=== PATIENT | male | born 1975 ===

== ENCOUNTER 2016-05-25 19:54 | Emergency (ER) | payer MEDICAID ==
[2016-05-25 19:55] VITALS: BMI 27.8
[2016-05-25 20:00] VITALS: BP 132/73; PULSE 117; RESP 16; TEMP 97.7; O2SAT 100
[2016-05-25] MEDS ORDERED: metroNIDAZOLE 500mg/100ml NS 100 ML IVPB ONE ×2 (21:06→21:12)
[2016-05-25] MEDS ORDERED: Ciprofloxacin 400mg/200ml D5W 200 ML IVPB STA (21:06)
[2016-05-25] MEDS ORDERED: Ciprofloxacin 400mg/200ml D5W 200 ML IVPB ONE (21:13)
[2016-05-25 21:36] LABS: BASO # 0.1 K/uL (0.0-0.2); BASO % 0.7 % (0.0-2.0); EOS # 0.4 K/uL (0.0-0.7); EOS % 4.2 % (0.0-4.0); HEMATOCRIT 47.6 % (35.0-51.0); LYMPH # 2.4 K/uL (1.0-4.3); LYMPH % 27.2 % (20.0-40.0); MEAN CORPUSCULAR HEMOGLOBIN 30.7 pg (27.0-31.0); MONO # 0.6 K/uL (0.0-0.8); MONO % 7.2 % (0.0-10.0); NEUT # 5.3 K/uL (1.8-7.0); NEUT % 60.7 % (50.0-75.0); NRBC % 0.2 % (0.0-0.0); WHITE BLOOD COUNT 8.7 K/uL (4.8-10.8)
[2016-05-25 21:47] LABS: ALB/GLOB RATIO 1.2 (1.0-2.1); ALKALINE PHOSPHATASE 72 U/L (38-126); ALT/SGPT 24 U/L (21-72); AST/SGOT 33 U/L (17-59); BILIRUBIN,TOTAL 0.6 mg/dl (0.2-1.3); BLOOD UREA NITROGEN 18 mg/dl (9-20); CALCIUM 9.2 mg/dL (8.4-10.2); CARBON DIOXIDE 26 mmol/L (22-30); CHLORIDE 105 mmol/L (98-107); GFR AFRICAN-AMERICAN > 60; GLUCOSE,RANDOM 79 mg/dL (75-110); LIPASE 208 U/L (23-300); POTASSIUM 4.4 MMOL/L (3.6-5.0); SODIUM 146 mmol/l (132-148); TOTAL PROTEIN 7.3 G/DL (6.3-8.2)
[2016-05-25] MEDS ORDERED: Iohexol 300 100 ML IJ ONE (22:32)
[2016-05-25] MEDS ORDERED: Sodium Chloride 0.9% 50 ML IV ONE ×2 (22:32→22:33)
[2016-05-25] MEDS ORDERED: Sodium Chloride 0.9% 100 ML ONE (22:34)
--- NOTE | 2016-05-25 22:41 | ED PDOC ---
HPI: Abdomen Time Seen by Provider: 05/25/16 20:11 Chief Complaint (Nursing): Abdominal Pain Chief Complaint (Provider): Abdominal pain, epigastric and LUQ History Per: Patient History/Exam Limitations: no limitations Onset/Duration Of Symptoms: Days Severity: Severe Pain Scale Rating Of: 10 Past Medical History Reviewed: Historical Data, Nursing Documentation, Vital Signs Vital Signs: Last Vital Signs Temp 97.7 F 05/25/16 19:57 Pulse 117 H 05/25/16 19:57 Resp 16 05/25/16 19:57 BP 132/73 05/25/16 19:57 Pulse Ox 100 05/26/16 01:40 - Medical History PMH: Asthma, Back Problems, Gall Bladder Disease, Pancreatitis, Rheumatoid Arthritis Denies: CHF, COPD, HIV, HTN, Hypercholesterolemia, Hypothyroidism, Chronic Kidney Disease - Surgical History Surgical History: Cholecystectomy, Endoscopy - Family History Family History: States: Unknown Family Hx - Immunization History Hx Tetanus Toxoid Vaccination: No Hx Influenza Vaccination: Yes Hx Pneumococcal Vaccination: Yes - Home Medications Home Medications: Ambulatory Orders Medication Instructions Recorded Albuterol Sulfate [Proventil Hfa] 2 puff INH Q6H PRN 05/13/16 Lipase/Protease/Amylase [Zenpep Dr 1 cap PO TID 05/13/16 25,000 Units Capsule] Ondansetron [Zofran Tab] 4 mg PO DAILY PRN 05/13/16 traMADol [Ultram] 50 mg PO TID PRN #12 tab 05/13/16 Ciprofloxacin [Cipro] 500 mg PO BID #14 tab 05/20/16 metroNIDAZOLE [Flagyl] 500 mg PO TID #21 tab 05/20/16 - Allergies Allergies/Adverse Reactions: Allergies Allergy/AdvReac Type Severity Reaction Status Date / Time No Known Allergies Allergy Verified 05/20/16 17:56 Review of Systems ROS Statement: Except As Marked, All Systems Reviewed And Found Negative Gastrointestinal: Positive for: Nausea, Vomiting, Abdominal Pain Physical Exam - Reviewed Nursing Documentation Reviewed: Yes Vital Signs Reviewed: Yes - Physical Exam Appears: Positive for: Well, Non-toxic, No Acute Distress Head Exam: Positive for: ATRAUMATIC, NORMAL INSPECTION, NORMOCEPHALIC Skin: Positive for: Normal Color, Warm, DRY Eye Exam: Positive for: Normal appearance ENT: Positive for: Normal ENT Inspection Neck: Positive for: Normal, Painless ROM Cardiovascular/Chest: Positive for: Regular Rate, Rhythm Respiratory: Positive for: CNT, Normal Breath Sounds Gastrointestinal/Abdominal: Positive for: Bowel Sounds, Soft, Tenderness ( Diffuse abdominal pain ). Negative for: Normal Exam, Guarding, Rebound Back: Positive for: Normal Inspection Extremity: Positive for: Normal ROM Neurologic/Psych: Positive for: Alert, Oriented - Laboratory Results Result Diagrams: 05/25/16 21:15 05/25/16 21:15 - ECG O2 Sat by Pulse Oximetry: 100 Medical Decision Making Medical Decision Making: Discussed with Thai Meneses NP. States he will see patient at 8am. Pts GI is out of [facility] (Formerly [facility]). Disposition - Clinical Impression Clinical Impression: Abdominal pain - Patient ED Disposition Is Patient to be Admitted: No Counseled Patient/Family Regarding: Diagnosis, Need For Followup - Disposition Referrals: Thai Meneses DNP, [employer] [employer] [Advanced Practice Nurse] - Disposition: Routine/Home Disposition Time: 01:20 Condition: GOOD Additional Instructions: Please follow-up with Thai Meneses DNP at 8am. Instructions: Abdominal Pain (ED)
--- NOTE | 2016-05-25 23:56 | CT ---
EXAM: CT Abdomen and Pelvis With Intravenous Contrast. CLINICAL HISTORY: 40 years old, male; Pain; Abdominal pain; Prior surgery; Surgery date: <1 month; Surgery type: Pancreatic stent insertion; Patient HX: Gall bladder removed; Additional info: Abdominal pain, vomiting TECHNIQUE: Axial computed tomography images of the abdomen and pelvis with intravenous contrast. This CT exam was performed using one or more of the following dose reduction techniques: automated exposure control, adjustment of the mA and/or kV according to patient size, and/or use of iterative reconstruction technique. Coronal and sagittal reformatted images were created and reviewed. CONTRAST: 95 mL of [id number] administered intravenously. EXAM DATE/TIME: 05/25/2016 9:06 PM COMPARISON: CT - ABD PELVIS IV CONTRAST ONLY 11/05/2015 3:25:53 AM FINDINGS: Cholecystectomy clips are present. The liver is normal. The spleen is normal. Stent in the pancreatic duct with one tip in the body and one tip along the medial wall of the descending duodenum, new since prior study. The pancreatic parenchyma appears normal. No peripancreatic stranding. No hydronephrosis or perinephric stranding. Left renal cyst. There is marked gastric dilation with a large amount of ingested material and fluid. no obstructing lesion identified. Decompression with feeding tube may be helpful. The colon is distended with stool consistent with constipation. A normal appendix is identified series 3 images 81-91, coronal images 58-65. IMPRESSION: Marked gastric dilation. Mild constipation. New pancreatic duct stent.
== END 2016-05-26 02:16 | disposition home or self-care (01) ==
LOC: H.ER 19:54
DX: R10.13 Epigastric pain (principal); R11.2 Nausea with vomiting, unspecified

== ENCOUNTER 2016-07-29 15:29 | Observation (INO) | payer MEDICAID ==
--- NOTE | 2016-07-29 15:57 | ED PDOC ---
HPI: Chest Pain Time Seen by Provider: 07/29/16 15:34 Chief Complaint (Nursing): Chest Pain History Per: Patient History/Exam Limitations: no limitations Onset/Duration Of Symptoms: Gradual (4 hours ago) Current Symptoms Are (Timing): Still Present Severity: Moderate Quality: Sharp Associated Symptoms: denies: Nausea, Dyspnea, Diaphoresis Modifying Factors: None Exacerbating Factors: None Alleviating Factors: None Nitro Therapy Administered: 1, Per EMS, No Relief Additional History Per: Patient Additional Complaint(s): chest pain in doctor's office. ekg done on office and paramedics did ekg. aspirin 324mg and 1 nitro given in th field. at present light headed Past Medical History Reviewed: Historical Data, Nursing Documentation, Vital Signs Vital Signs: Last Vital Signs Temp 98.7 F 07/29/16 15:32 Pulse 98 H 07/29/16 15:32 Resp 18 07/29/16 15:32 BP 132/85 07/29/16 15:32 Pulse Ox 99 07/29/16 15:58 - Medical History PMH: Asthma, Back Problems, Gall Bladder Disease, Pancreatitis, Rheumatoid Arthritis Denies: CHF, Colonic Polyps, COPD, Fractures, HIV, HTN, Hypercholesterolemia , Hypothyroidism, Chronic Kidney Disease, Seizures - Surgical History Surgical History: Cholecystectomy, Endoscopy Denies: Pacemaker - Family History Family History: States: Unknown Family Hx - Living Arrangements Living Arrangements: With Family - Social History Current smoker - smoking cessation education provided: Yes Drugs: Denies, Other (prev cocaine use) - Immunization History Hx Tetanus Toxoid Vaccination: Yes Hx Influenza Vaccination: Yes Hx Pneumococcal Vaccination: Yes - Home Medications Home Medications: Ambulatory Orders Medication Instructions Recorded Fludrocortisone [Florinef] 0.1 mg PO DAILY 07/29/16 Ibuprofen [Motrin Tab] 600 mg PO Q6H 07/29/16 Nicotine 14 mg/24 hr [Nicoderm CQ] 1 patch TD DAILY 07/29/16 Ondansetron [Zofran Tab] 4 mg PO Q6H PRN 07/29/16 - Allergies Allergies/Adverse Reactions: Allergies Allergy/AdvReac Type Severity Reaction Status Date / Time No Known Allergies Allergy Verified 06/13/16 08:39 DOT Risk Score for UA/NSTEMI - DOT Risk Score Age > 64: NO 3 or more CAD Risk Factors: NO Known CAD (Stenosis greater than 50%): NO Aspirin use in past 7 days: NO Severe Angina: NO EKG ST changes greater than 0.5mm: NO Positive Cardiac Marker: NO DOT Score: 0 Risk %: 5% Review of Systems ROS Statement: Except As Marked, All Systems Reviewed And Found Negative Constitutional: Negative for: Fever, Chills Cardiovascular: Positive for: Chest Pain, Light Headedness. Negative for: Palpitations, Edema Respiratory: Negative for: Cough, Shortness of Breath, SOB with Exertion, Pleuritic Pain Gastrointestinal: Negative for: Nausea, Vomiting, Abdominal Pain Neurological: Negative for: Weakness, Numbness, Headache Physical Exam - Reviewed Nursing Documentation Reviewed: Yes Vital Signs Reviewed: Yes - Physical Exam Appears: Positive for: Uncomfortable Head Exam: Positive for: ATRAUMATIC, NORMAL INSPECTION, NORMOCEPHALIC Eye Exam: Positive for: Normal appearance, EOMI Neck: Positive for: Normal, Painless ROM, Supple Cardiovascular/Chest: Positive for: Regular Rate, Rhythm, Chest Non Tender, Tachycardia. Negative for: Edema, Gallop, Murmur, Bradycardia Respiratory: Positive for: Normal Breath Sounds, Decreased Breath Sounds. Negative for: Accessory Muscle Use, Crackles, Rales, Rhonchi, Stridor, Wheezing , Respiratory Distress Pulses-Radial (L): 2+ Pulses-Radial (R): 2+ Gastrointestinal/Abdominal: Positive for: Normal Exam, Bowel Sounds, Soft. Negative for: Tenderness Back: Positive for: Normal Inspection. Negative for: L CVA Tenderness, R CVA Tenderness Extremity: Positive for: Normal ROM. Negative for: Tenderness, Pedal Edema Neurologic/Psych: Positive for: Alert, fpga engineer II-XII, Oriented, Mood/Affect ( anxious). Negative for: Motor/Sensory Deficits, Aphasia, Facial Droop - Laboratory Results Result Diagrams: 07/29/16 16:37 07/29/16 16:37 - ECG ECG: Positive for: Interpreted By Me ECG Rhythm: Positive for: Normal QRS, Normal ST Segment, Sinus Rhythm, ST/T Changes (twi in 3,2,avf,v5,v6) O2 Sat by Pulse Oximetry: 99 Pulse Ox Interpretation: Normal Disposition - Clinical Impression Clinical Impression: Acute chest pain, Pancreatitis - Patient ED Disposition Is Patient to be Admitted: Transfer of Care - Disposition Disposition: Transfer of Care Disposition Time: 19:16 Condition: STABLE
--- NOTE | 2016-07-29 16:24 | RAD ---
PROCEDURE: CHEST RADIOGRAPH, 1 VIEW HISTORY: Chest pain COMPARISON: 06/20/2015. FINDINGS: LUNGS: The lungs are well inflated and clear. PLEURA: No pneumothorax or pleural fluid seen. CARDIOVASCULAR: Normal. OSSEOUS STRUCTURES: No significant abnormalities. VISUALIZED UPPER ABDOMEN: Normal. OTHER FINDINGS: None. IMPRESSION: No active pulmonary disease.
[2016-07-29 16:47] LABS: BASO # 0.1 K/uL (0.0-0.2); BASO % 0.6 % (0.0-2.0); EOS # 0.2 K/uL (0.0-0.7); EOS % 1.3 % (0.0-4.0); HEMATOCRIT 47.5 % (35.0-51.0); LYMPH # 1.6 K/uL (1.0-4.3); LYMPH % 13.2 % (20.0-40.0); MEAN CELL VOLUME 92.7 fl (80.0-94.0); MEAN CORPUSCULAR HGB CONC 32.4 g/dL (33.0-37.0); MEAN PLATELET VOLUME 8.1 fl (7.2-11.7); MONO # 0.6 K/uL (0.0-0.8); MONO % 5.1 % (0.0-10.0); NEUT # 9.4 K/uL (1.8-7.0); NEUT % 79.8 % (50.0-75.0); RED CELL DISTRIBUTION WIDTH 14.4 % (11.5-14.5); WHITE BLOOD COUNT 11.8 K/uL (4.8-10.8)
[2016-07-29 17:03] LABS: ALB/GLOB RATIO 1.2 (1.0-2.1); ALKALINE PHOSPHATASE 60 U/L (38-126); ALT/SGPT 17 U/L (21-72); AST/SGOT 39 U/L (17-59); BILIRUBIN,TOTAL 0.8 mg/dl (0.2-1.3); BLOOD UREA NITROGEN 12 mg/dl (9-20); CALCIUM 8.9 mg/dL (8.4-10.2); CARBON DIOXIDE 20 mmol/L (22-30); CHLORIDE 107 mmol/L (98-107); GFR AFRICAN-AMERICAN > 60; GLUCOSE,RANDOM 105 mg/dL (75-110); LIPASE 1465 U/L (23-300); MAGNESIUM 1.8 MG/DL (1.6-2.3); SODIUM 142 mmol/l (132-148); TOTAL PROTEIN 8.2 G/DL (6.3-8.2)
[2016-07-29 17:04] LABS: POTASSIUM 4.6 MMOL/L (3.6-5.0)
[2016-07-29] MEDS ORDERED: Sodium Chloride 0.9% 500 ML IV ONE (17:21)
[2016-07-29] MEDS ORDERED: Sodium Chloride 0.9% 50 ML IV ONE (18:02)
[2016-07-29] MEDS ORDERED: Iodixanol 320 MG/ML 100 ML BOTTLE IV ONE (18:02)
[2016-07-29 18:10] LABS: PARTIAL THROMBOPLASTIN TIME 26.1 SECONDS (23.3-32.5)
--- NOTE | 2016-07-29 19:16 | ED PDOC ---
"- Laboratory Results Result Diagrams: 07/29/16 16:37 07/29/16 16:37 - ECG O2 Sat by Pulse Oximetry: 99 Medical Decision Making Medical Decision Makin:00 Patient is signed out to me by Raúl Rodriguez MD pending CT abdomen and pelvis, reevaluation, and final disposition. Scribe Attestation: Documented by Annie Calix, acting as a scribe for Balwinder Romero MD. Provider Scribe Attestation: All medical record entries made by the Scribe were at my direction and personally dictated by me. I have reviewed the chart and agree that the record accurately reflects my personal performance of the history, physical exam, medical decision making, and the department course for this patient. I have also personally directed, reviewed, and agree with the discharge instructions and disposition. Disposition - Clinical Impression Clinical Impression: Acute chest pain, Pancreatitis - POA Present On Arrival: None - Disposition Disposition: Hospitalized as Observation Patient Disposition Time: 20:05 Condition: STABLE Progress Note - Review of Symptoms Events since last encounter: 815PM: Pt. still c/o of epigastric pain, morphine ordered. Ct reported as below. Thai Meneses NP informed of results. Will admit to [facility] for Chest pain and pancreatitis. EXAM: CT Angiography Chest With Intravenous Contrast CLINICAL HISTORY: 40 years old, male; Pain; Other: HX of pancreatitis; Chest pain; Type not specified; Patient HX: Gb disease. HX of pancreatits; Additional info: Cp R/O pe. Patient was sent from doctor's office. Sent phy. Doc with request TECHNIQUE: Axial computed tomographic angiography images of the chest with intravenous contrast using pulmonary embolism protocol. This CT exam was performed using one or more of the following dose reduction techniques: automated exposure control, adjustment of the mA and/or kV according to patient size, and/or use of iterative reconstruction technique. MIP reconstructed images were created and reviewed. Coronal and sagittal reformatted images were created and reviewed. CONTRAST: 90 mL of visipaque 320 administered intravenously. COMPARISON: There are no prior studies for comparison. FINDINGS: Heart, aorta and Pulmonary arteries: Heart size is normal. There is no pericardial effusion. There is no aneurysm or dissection. Bolus timing limits evaluation of pulmonary arteries. There are no central pulmonary emboli. There are no large peripheral pulmonary emboli. Lungs and pleural spaces: Trachea and main bronchi are patent. The lungs are mildly hyperinflated.. There are no focal infiltrates. There is minimal linear scarring at the lung bases. There are no effusions. Mediastinum: There are no pathologically enlarged mediastinal or hilar nodes. Esophagus is unremarkable. Thyroid: Thyroid is only partially imaged. Bones/joints: There are degenerative changes in the spine. There is mild wedging T9, T10 and T11. Soft tissues: unremarkable Upper abdomen: Refer to following report for abdominal findings JOSE A GRANADOS | Final Radiology Report Page 2 of 3 IMPRESSION: No aneurysm, dissection or central pulmonary emboli; limited evaluation of peripheral vessels due to bolus timing; no focal pneumonia Additional findings as described above. EXAM: CT Abdomen and Pelvis With Intravenous Contrast CLINICAL HISTORY: 40 years old, male; Pain; Other: HX of pancreatitis; Chest pain; Type not specified; Patient HX: Gb disease. HX of pancreatits; Additional info: Cp R/O pe. Patient was sent from doctor's office. Sent phy. Doc with request TECHNIQUE: Axial computed tomography images of the abdomen and pelvis with intravenous contrast. This CT exam was performed using one or more of the following dose reduction techniques : automated exposure control, adjustment of the mA and/or kV according to patient size, and/ or use of iterative reconstruction technique. Coronal and sagittal reformatted images were created and reviewed. CONTRAST: 90 mL of visipaque 320 administered intravenously. EXAM DATE/TIME: 07/29/2016 5:19 PM COMPARISON: CT - ABD PELVIS W/O PO OR IV CONT 02/27/2015 9:54:06 PM FINDINGS: Lower thorax: Refer to prior report for chest findings ABDOMEN: Liver: unremarkable Gallbladder and bile ducts: Gallbladder surgically absent. Common bile duct is unremarkable. Pancreas: Pancreas is unremarkable. Spleen: unremarkable Adrenals: unremarkable Kidneys and ureters: There is a small left upper pole renal cyst. Kidneys and ureters are otherwise unremarkable. Stomach and bowel: Stomach is partially distended. Rotation is normal. Small bowel is mildly distended with fluid. There is mild distal duodenal and proximal jejunal fold prominence. There is no obstruction. Terminal ileum is unremarkable. Appendix is unremarkable. There is moderate stool in the right colon.Colon is incompletely distended which limits evaluation. There is mild sigmoid and rectal wall thickening Appendix: See stomach and bowel PELVIS: CANDE GRANADOSNATHAN | Final Radiology Report CONFIDENTIALITY STATEMENT This report is intended only for use by the referring physician, and only in accordance with law. If you received this in error, call [phone]. Page 3 of 3 Bladder: There is mild bladder wall thickening. Reproductive: Seminal vesicles and prostate are unremarkable. ABDOMEN and PELVIS: Intraperitoneal space: There is trace fluid in the pelvis.There is no free air. Bones/joints: There are degenerative changes in the osseus structures. There is mildly T9-T10 and T11. Soft tissues: unremarkable Vasculature: Vascular structures are unremarkable. Lymph nodes: There is no pathologic adenopathy. IMPRESSION: Cholecystectomy; no acute solid visceral abnormality, no CT findings of pancreatitis; possible proctitis Additional findings as described above."
--- NOTE | 2016-07-29 20:08 | CT ---
EXAM: CT Angiography Chest With Intravenous Contrast CLINICAL HISTORY: 40 years old, male; Pain; Other: HX of pancreatitis; Chest pain; Type not specified; Patient HX: Gb disease. HX of pancreatits; Additional info: Cp R/O pe. Patient was sent from doctor's office. Sent phy. Doc with request TECHNIQUE: Axial computed tomographic angiography images of the chest with intravenous contrast using pulmonary embolism protocol. This CT exam was performed using one or more of the following dose reduction techniques: automated exposure control, adjustment of the mA and/or kV according to patient size, and/or use of iterative reconstruction technique. MIP reconstructed images were created and reviewed. Coronal and sagittal reformatted images were created and reviewed. CONTRAST: 90 mL of visipaque 320 administered intravenously. COMPARISON: There are no prior studies for comparison. FINDINGS: Heart, aorta and Pulmonary arteries: Heart size is normal. There is no pericardial effusion. There is no aneurysm or dissection. Bolus timing limits evaluation of pulmonary arteries. There are no central pulmonary emboli. There are no large peripheral pulmonary emboli. Lungs and pleural spaces: Trachea and main bronchi are patent. The lungs are mildly hyperinflated.. There are no focal infiltrates. There is minimal linear scarring at the lung bases. There are no effusions. Mediastinum: There are no pathologically enlarged mediastinal or hilar nodes. Esophagus is unremarkable. Thyroid: Thyroid is only partially imaged. Bones/joints: There are degenerative changes in the spine. There is mild wedging T9, T10 and T11. Soft tissues: unremarkable Upper abdomen: Refer to following report for abdominal findings IMPRESSION: No aneurysm, dissection or central pulmonary emboli; limited evaluation of peripheral vessels due to bolus timing; no focal pneumonia Additional findings as described above. EXAM: CT Abdomen and Pelvis With Intravenous Contrast CLINICAL HISTORY: 40 years old, male; Pain; Other: HX of pancreatitis; Chest pain; Type not specified; Patient HX: Gb disease. HX of pancreatits; Additional info: Cp R/O pe. Patient was sent from doctor's office. Sent phy. Doc with request TECHNIQUE: Axial computed tomography images of the abdomen and pelvis with intravenous contrast. This CT exam was performed using one or more of the following dose reduction techniques: automated exposure control, adjustment of the mA and/or kV according to patient size, and/or use of iterative reconstruction technique. Coronal and sagittal reformatted images were created and reviewed. CONTRAST: 90 mL of visipaque 320 administered intravenously. EXAM DATE/TIME: 07/29/2016 5:19 PM COMPARISON: CT - ABD PELVIS W/O PO OR IV CONT 02/27/2015 9:54:06 PM FINDINGS: Lower thorax: Refer to prior report for chest findings ABDOMEN: Liver: unremarkable Gallbladder and bile ducts: Gallbladder surgically absent. Common bile duct is unremarkable. Pancreas: Pancreas is unremarkable. Spleen: unremarkable Adrenals: unremarkable Kidneys and ureters: There is a small left upper pole renal cyst. Kidneys and ureters are otherwise unremarkable. Stomach and bowel: Stomach is partially distended. Rotation is normal. Small bowel is mildly distended with fluid. There is mild distal duodenal and proximal jejunal fold prominence. There is no obstruction. Terminal ileum is unremarkable. Appendix is unremarkable. There is moderate stool in the right colon.Colon is incompletely distended which limits evaluation. There is mild sigmoid and rectal wall thickening Appendix: See stomach and bowel PELVIS: Bladder: There is mild bladder wall thickening. Reproductive: Seminal vesicles and prostate are unremarkable. ABDOMEN and PELVIS: Intraperitoneal space: There is trace fluid in the pelvis.There is no free air. Bones/joints: There are degenerative changes in the osseus structures. There is mildly T9-T10 and T11. Soft tissues: unremarkable Vasculature: Vascular structures are unremarkable. Lymph nodes: There is no pathologic adenopathy. IMPRESSION: Cholecystectomy; no acute solid visceral abnormality, no CT findings of pancreatitis; possible proctitis Additional findings as described above.
[2016-07-29] MEDS: Lactated Ringer's 2,000 ML IV SCH (21:00)
[2016-07-29] MEDS ORDERED: Oxycodone/Acetaminophen 5/325 mg Tab PO PRN (22:26)
[2016-07-29] MEDS ORDERED: Sodium Chloride 0.9% 1,000 ML IV SCH (22:30)
[2016-07-30] MEDS: Lactated Ringer's 2,000 ML IV SCH (05:51)
[2016-07-30 06:48] LABS: BASO % 0.6 % (0.0-2.0); EOS # 0.3 K/uL (0.0-0.7); EOS % 5.2 % (0.0-4.0); HEMATOCRIT 40.2 % (35.0-51.0); LYMPH # 3.2 K/uL (1.0-4.3); MEAN CELL VOLUME 91.8 fl (80.0-94.0); MEAN CORPUSCULAR HEMOGLOBIN 30.1 pg (27.0-31.0); MEAN CORPUSCULAR HGB CONC 32.8 g/dL (33.0-37.0); MEAN PLATELET VOLUME 7.3 fl (7.2-11.7); MONO # 0.4 K/uL (0.0-0.8); MONO % 6.2 % (0.0-10.0); NEUT # 2.6 K/uL (1.8-7.0); NRBC % 0.1 % (0.0-0.0); RED CELL DISTRIBUTION WIDTH 14.1 % (11.5-14.5); WHITE BLOOD COUNT 6.6 K/uL (4.8-10.8)
[2016-07-30 07:14] LABS: ALB/GLOB RATIO 1.1 (1.0-2.1); ALKALINE PHOSPHATASE 53 U/L (38-126); ALT/SGPT 26 U/L (21-72); AST/SGOT 17 U/L (17-59); BILIRUBIN,TOTAL 0.3 mg/dl (0.2-1.3); BLOOD UREA NITROGEN 7 mg/dl (9-20); CALCIUM 8.5 mg/dL (8.4-10.2); CARBON DIOXIDE 23 mmol/L (22-30); CHLORIDE 108 mmol/L (98-107); GFR AFRICAN-AMERICAN > 60; GLUCOSE,RANDOM 81 mg/dL (75-110); POTASSIUM 3.1 MMOL/L (3.6-5.0); SODIUM 143 mmol/l (132-148); TOTAL PROTEIN 5.8 G/DL (6.3-8.2)
--- NOTE | 2016-07-30 07:17 | CP.PCM.HP ---
History of Present Illness - History of Present Illness History of Present Illness: pt admitted for cp, dyspnea. ct and bw noted. pt more comfortable this am. no f/c, n/v/d. lipase elevated.this is consistent w/ pts chronic pancreatitis. pts pain is controlled. at present. Present on Admission - Present on Admission Any Indicators Present on Admission: No Review of Systems - Cardiovascular Cardiovascular: As Per HPI, Chest Pain - Respiratory Respiratory: As Per HPI, Dyspnea - Gastrointestinal Gastrointestinal: As Per HPI, Abdominal Pain Past Patient History - Infectious Disease Hx of Infectious Diseases: None - Tetanus Immunizations Tetanus Immunization: Unknown - Past Medical History & Family History Past Medical History?: Yes - Past Social History Drugs: Denies, Other (prev cocaine use) - CARDIAC Hx Congestive Heart Failure: No Hx Hypercholesterolemia: No Hx Hypertension: No Hx Pacemaker: No - PULMONARY Hx Asthma: Yes Hx Chronic Obstructive Pulmonary Disease (COPD): No - NEUROLOGICAL Hx Seizures: No - HEENT Hx HEENT Problems: No - RENAL Hx Chronic Kidney Disease: No - ENDOCRINE/METABOLIC Hx Hypothyroidism: No - HEMATOLOGICAL/ONCOLOGICAL Hx Human Immunodeficiency Virus (HIV): No - INTEGUMENTARY Hx Dermatological Problems: No - MUSCULOSKELETAL/RHEUMATOLOGICAL Hx Fractures: No Hx Rheumatoid Arthritis: Yes - GASTROINTESTINAL Hx Gall Bladder Disease: Yes Hx Pancreatitis: Yes - GENITOURINARY/GYNECOLOGICAL Hx Genitourinary Disorders: No - PSYCHIATRIC Hx Emotional Abuse: No Hx Physical Abuse: No Hx Substance Use: Yes - SURGICAL HISTORY Hx Cholecystectomy: Yes - ANESTHESIA Hx Anesthesia: Yes Hx Anesthesia Reactions: No Hx Malignant Hyperthermia: No Meds Allergies/Adverse Reactions: Allergies Allergy/AdvReac Type Severity Reaction Status Date / Time No Known Allergies Allergy Verified 06/13/16 08:39 Physical Exam - Constitutional Appears: Well, Non-toxic, No Acute Distress - Head Exam Head Exam: ATRAUMATIC, NORMAL INSPECTION, NORMOCEPHALIC - Eye Exam Eye Exam: EOMI, Normal appearance, PERRL Pupil Exam: NORMAL ACCOMODATION, PERRL - ENT Exam ENT Exam: Mucous Membranes Moist, Normal Exam - Neck Exam Neck exam: Positive for: Normal Inspection - Respiratory Exam Respiratory Exam: Clear to Auscultation Bilateral, NORMAL BREATHING PATTERN - Cardiovascular Exam Cardiovascular Exam: REGULAR RHYTHM, RRR, +S1, +S2 - GI/Abdominal Exam GI & Abdominal Exam: Normal Bowel Sounds, Soft. absent: Tenderness - Extremities Exam Extremities exam: Positive for: full ROM, normal capillary refill, normal inspection, pedal pulses present - Back Exam Back exam: NORMAL INSPECTION - Neurological Exam Neurological exam: Alert, CN II-XII Intact, Normal Gait, Oriented x3, Reflexes Normal - Psychiatric Exam Psychiatric exam: Normal Affect, Normal Mood - Skin Skin Exam: Dry, Intact, Normal Color, Warm Results - Vital Signs Recent Vital Signs: Last Vital Signs Temp 98.9 F 07/30/16 06:16 Pulse 70 07/30/16 06:16 Resp 12 07/30/16 06:16 BP 112/64 07/30/16 06:16 Pulse Ox 98 07/30/16 06:16 - Labs Result Diagrams: 07/30/16 06:00 07/30/16 06:17 Labs: Laboratory Results - last 24 hr 07/30/16 07/30/16 06:00 06:17 WBC 6.6 RBC 4.38 L Hgb 13.2 D Hct 40.2 MCV 91.8 MCH 30.1 MCHC 32.8 L RDW 14.1 Plt Count 205 MPV 7.3 Neut % (Auto) 40.0 L Lymph % (Auto) 48.0 H [place] % (Auto) 6.2 Eos % (Auto) 5.2 H Baso % (Auto) 0.6 Neut # 2.6 Lymph # 3.2 [place] # 0.4 Eos # 0.3 Baso # 0.0 Sodium 143 Potassium 3.1 L Chloride 108 H Carbon Dioxide 23 Anion Gap 15 BUN 7 L Creatinine 0.7 L Est GFR ( Amer) > 60 Est GFR (Non-Af Amer) > 60 Random Glucose 81 Calcium 8.5 Total Bilirubin 0.3 AST 17 D ALT 26 Alkaline Phosphatase 53 Total Protein 5.8 L Albumin 3.1 L D Globulin 2.7 Albumin/Globulin Ratio 1.1 Assessment & Plan (1) Acute chest pain Assessment and Plan: trops, cardio ?? r/t pancreatitis Status: Acute (2) Pancreatitis Assessment and Plan: lipase noted. ?? need for gi ivf po as marvin pain control uds Status: Acute (3) DVT prophylaxis Assessment and Plan: scd and aehose ambulation Status: Acute Decision To Admit - Pt Status Changed To: Hospital Disposition Of: Observation - . Bed Request Type: Telemetry Admitting Physician: Jessica Randhawa
--- NOTE | 2016-07-30 08:23 | CARD ---
APPROVED REPORT EKG Measurement Heart [id number] <Conclusion> Normal sinus rhythm Nonspecific T wave abnormality Prolonged QT Abnormal ECG
[2016-07-30] MEDS: Potassium CL 10mEq/100ml 100 ML IVPB SCH ×2 (09:41→10:45)
[2016-07-30 10:46] LABS: RBC URINE < 1 /hpf (0-3); URINE BILIRUBIN NEGATIVE (NEGATIVE); URINE BLOOD NEGATIVE (NEGATIVE); URINE COLOR STRAW (YELLOW); URINE GLUCOSE (UA) NEG (Normal); URINE KETONE NEGATIVE (NEGATIVE); URINE LEUKOCYTE ESTERASE NEG Leu/uL (Negative); URINE PROTEIN NEGATIVE (NEGATIVE); URINE UROBILINOGEN 0.2-1.0 mg/dL (0.2-1.0); WBC URINE 1 /hpf (0-5)
[2016-07-30] MEDS ORDERED: Oxycodone/Acetaminophen 5/325 mg Tab PO PRN (11:36)
[2016-07-30 13:37] VITALS: BP 114/78; RESP 13; TEMP 98.2; O2SAT 100
[2016-07-30 14:15] VITALS: PULSE 61
--- NOTE | 2016-07-30 14:32 | CP.PCM.DIS ---
Provider - Provider Date of Admission: 07/29/16 20:12 Attending physician: Jessica Randhawa MD Time Spent in preparation of Discharge (in minutes): 15 Diagnosis - Discharge Diagnosis (1) Acute chest pain Status: Acute (2) Pancreatitis Status: Acute (3) DVT prophylaxis Status: Acute Hospital Course - Lab Results Lab Results: Most Recent Lab Values WBC 6.6 K/uL (4.8-10.8) 07/30/16 06:00 RBC 4.38 Mil/uL (4.40-5.90) L 07/30/16 06:00 Hgb 13.2 g/dL (12.0-18.0) D 07/30/16 06:00 Hct 40.2 % (35.0-51.0) 07/30/16 06:00 MCV 91.8 fl (80.0-94.0) 07/30/16 06:00 MCH 30.1 pg (27.0-31.0) 07/30/16 06:00 MCHC 32.8 g/dL (33.0-37.0) L 07/30/16 06:00 RDW 14.1 % (11.5-14.5) 07/30/16 06:00 Plt Count 205 K/uL (130-400) 07/30/16 06:00 MPV 7.3 fl (7.2-11.7) 07/30/16 06:00 Neut % (Auto) 40.0 % (50.0-75.0) L 07/30/16 06:00 Lymph % (Auto) 48.0 % (20.0-40.0) H 07/30/16 06:00 [place] % (Auto) 6.2 % (0.0-10.0) 07/30/16 06:00 Eos % (Auto) 5.2 % (0.0-4.0) H 07/30/16 06:00 Baso % (Auto) 0.6 % (0.0-2.0) 07/30/16 06:00 Neut # 2.6 K/uL (1.8-7.0) 07/30/16 06:00 Lymph # 3.2 K/uL (1.0-4.3) 07/30/16 06:00 [place] # 0.4 K/uL (0.0-0.8) 07/30/16 06:00 Eos # 0.3 K/uL (0.0-0.7) 07/30/16 06:00 Baso # 0.0 K/uL (0.0-0.2) 07/30/16 06:00 PT 11.4 SECONDS (9.6-11.2) H 07/29/16 18:10 INR 1.10 (0.92-1.08) H 07/29/16 18:10 APTT 26.1 SECONDS (23.3-32.5) 07/29/16 18:10 D-Dimer, Quantitative 0.19 mg/L FEU (0-0.50) 07/29/16 18:10 Sodium 143 mmol/l (132-148) 07/30/16 06:17 Potassium 3.1 MMOL/L (3.6-5.0) L 07/30/16 06:17 Chloride 108 mmol/L (98-107) H 07/30/16 06:17 Carbon Dioxide 23 mmol/L (22-30) 07/30/16 06:17 Anion Gap 15 (10-20) 07/30/16 06:17 BUN 7 mg/dl (9-20) L 07/30/16 06:17 Creatinine 0.7 mg/dL (0.8-1.5) L 07/30/16 06:17 Est GFR ( Amer) > 60 07/30/16 06:17 Est GFR (Non-Af Amer) > 60 07/30/16 06:17 Random Glucose 81 mg/dL (75-110) 07/30/16 06:17 Calcium 8.5 mg/dL (8.4-10.2) 07/30/16 06:17 Magnesium 1.8 MG/DL (1.6-2.3) 07/29/16 16:37 Total Bilirubin 0.3 mg/dl (0.2-1.3) 07/30/16 06:17 AST 17 U/L (17-59) D 07/30/16 06:17 ALT 26 U/L (21-72) 07/30/16 06:17 Alkaline Phosphatase 53 U/L (38-126) 07/30/16 06:17 Troponin I < 0.0120 ng/mL (0.00-0.120) 07/30/16 06:17 NT-Pro-B Natriuret Pep 109 pg/ml (0-450) 07/29/16 16:37 Total Protein 5.8 G/DL (6.3-8.2) L 07/30/16 06:17 Albumin 3.1 g/dL (3.5-5.0) L D 07/30/16 06:17 Globulin 2.7 gm/dL (2.2-3.9) 07/30/16 06:17 Albumin/Globulin Ratio 1.1 (1.0-2.1) 07/30/16 06:17 Lipase 185 U/L (23-300) 07/30/16 07:15 Urine Color Straw (YELLOW) 07/30/16 10:33 Urine Clarity Clear (Clear) 07/30/16 10:33 Urine pH 6.0 (5.0-8.0) 07/30/16 10:33 Ur Specific [place] 1.010 (1.003-1.030) 07/30/16 10:33 Urine Protein Negative mg/dL (NEGATIVE) 07/30/16 10:33 Urine Glucose (UA) Neg mg/dL (Normal) 07/30/16 10:33 Urine Ketones Negative mg/dL (NEGATIVE) 07/30/16 10:33 Urine Blood Negative (NEGATIVE) 07/30/16 10:33 Urine Nitrate Negative (NEGATIVE) 07/30/16 10:33 Urine Bilirubin Negative (NEGATIVE) 07/30/16 10:33 Urine Urobilinogen 0.2-1.0 mg/dL (0.2-1.0) 07/30/16 10:33 Ur Leukocyte Esterase Neg Justice/uL (Negative) 07/30/16 10:33 Urine RBC (Auto) < 1 /hpf (0-3) 07/30/16 10:33 Urine Microscopic WBC 1 /hpf (0-5) 07/30/16 10:33 Urine Opiates Screen Positive (NEGATIVE) H 07/30/16 10:33 Urine Methadone Screen Negative (NEGATIVE) 07/30/16 10:33 Ur Barbiturates Screen Negative (NEGATIVE) 07/30/16 10:33 Ur Phencyclidine Scrn Negative (NEGATIVE) 07/30/16 10:33 Ur Amphetamines Screen Negative (NEGATIVE) 07/30/16 10:33 U Benzodiazepines Scrn Negative (NEGATIVE) 07/30/16 10:33 U Oth Cocaine Metabols Positive (NEGATIVE) H 07/30/16 10:33 U Cannabinoids Screen Positive (NEGATIVE) H 07/30/16 10:33 Discharge Exam - Head Exam Head Exam: ATRAUMATIC, NORMAL INSPECTION, NORMOCEPHALIC Discharge Plan - Follow Up Plan Condition: STABLE Disposition: AGAINST MEDICAL ADVICE Additional Instructions: called by rn stating pt wishes to sign AMA. pt to f/u rmg in am, rted prn, medsp er med rec stay hydrated, po as marvin. fianl dx-cp, pancreatitis, dyspnea.
== END 2016-07-30 14:10 | disposition left against medical advice (07) ==
LOC: H.ER 15:29 → H.ERHOLD 20:12
PROVIDERS: ADMIT Family Medicine; ATTEND Family Medicine
DX: K85.90 Acute pancreatitis without necrosis or infection, unspecified (principal)

== ENCOUNTER 2016-11-16 15:24 | Inpatient (IN) | payer MEDICAID ==
[2016-11-16 15:25] VITALS: BMI 26.1
--- NOTE | 2016-11-16 16:08 | ED PDOC ---
HPI: Psych/Substance Abuse Time Seen by Provider: 11/16/16 15:51 Chief Complaint (Nursing): Psychiatric Evaluation Chief Complaint (Provider): hearing voices History Per: Patient History/Exam Limitations: no limitations Onset/Duration Of Symptoms: Days (3) Current Symptoms Are (Timing): Intermittent Episodes Suicide/Self Injury Attempted (Context): Cut Wrists Modifying Factor(s): Marijuana Severity: Moderate Associated Symptoms: Anxiety, Depression, Paranoia, Suicidal Thoughts, Suicidal Plan Involuntary Hold By: Emergency Physician Additional Complaint(s): 40yo male c/o hearing voices and attempting to cut arms in self-harm. States saw psychiatrist at [facility] and started on zoloft, since then has been hearing voices and concerned for self. Denies etoh or drug abuse other than marijuana. Past Medical History Reviewed: Historical Data, Nursing Documentation, Vital Signs Vital Signs: Last Vital Signs Temp 98.8 F 11/16/16 15:33 Pulse 68 11/16/16 15:33 Resp 20 11/16/16 15:33 BP 132/81 11/16/16 15:33 Pulse Ox 98 11/16/16 15:33 - Medical History PMH: Asthma, Back Problems, Gall Bladder Disease, Pancreatitis, Rheumatoid Arthritis Denies: CHF, Colonic Polyps, COPD, Fractures, HIV, HTN, Hypercholesterolemia , Hypothyroidism, Chronic Kidney Disease, Seizures - Surgical History Surgical History: Cholecystectomy (2004), Endoscopy Denies: Pacemaker - Family History Family History: States: Unknown Family Hx - Social History Current smoker - smoking cessation education provided: Yes Alcohol: None Drugs: Cannabis - Immunization History Hx Tetanus Toxoid Vaccination: Yes Hx Influenza Vaccination: Yes Hx Pneumococcal Vaccination: Yes - Home Medications Home Medications: Ambulatory Orders Medication Instructions Recorded Lipase/Protease/Amylase [Creon Dr 1 cap PO DAILY 08/20/16 6,000 Units Capsule] Folic Acid 1 mg PO DAILY #30 tab 08/23/16 Ondansetron HCl [Zofran] 4 mg PO Q6 #12 tablet 08/23/16 Albuterol HFA [Ventolin HFA 90 2 puff INH Q6 PRN 11/17/16 mcg/actuation (8 g)] Amylase/Lipase/Protease [Pancrease 6,000 u PO TID 11/17/16 61052 U-5000 U-[id number] U] Fludrocortisone [Florinef] 0.1 mg PO DAILY 11/17/16 - Allergies Allergies/Adverse Reactions: Allergies Allergy/AdvReac Type Severity Reaction Status Date / Time No Known Allergies Allergy Verified 11/17/16 03:07 Review of Systems ROS Statement: Except As Marked, All Systems Reviewed And Found Negative Constitutional: Negative for: Fever, Chills Cardiovascular: Negative for: Chest Pain, Palpitations Respiratory: Negative for: Cough, Shortness of Breath Gastrointestinal: Positive for: Vomiting. Negative for: Abdominal Pain Genitourinary Male: Negative for: Dysuria, Frequency Musculoskeletal: Negative for: Neck Pain, Shoulder Pain Skin: Negative for: Rash, Lesions, Jaundice Neurological: Positive for: Dizziness. Negative for: Weakness, Numbness Physical Exam - Reviewed Nursing Documentation Reviewed: Yes Vital Signs Reviewed: Yes - Physical Exam Appears: Positive for: Well, Non-toxic, No Acute Distress Head Exam: Positive for: ATRAUMATIC, NORMAL INSPECTION, NORMOCEPHALIC Skin: Positive for: Normal Color, Warm, DRY Eye Exam: Positive for: EOMI, Normal appearance, PERRL ENT: Positive for: Normal ENT Inspection Neck: Positive for: Normal, Painless ROM Cardiovascular/Chest: Positive for: Regular Rate, Rhythm Respiratory: Positive for: CNT, Normal Breath Sounds Gastrointestinal/Abdominal: Positive for: Normal Exam, Bowel Sounds, Soft. Negative for: Tenderness, Guarding Back: Positive for: Normal Inspection Extremity: Positive for: Normal ROM Neurologic/Psych: Positive for: Alert, Oriented, Mood/Affect (poor insight) - Laboratory Results Result Diagrams: 11/16/16 16:12 11/16/16 16:12 - ECG O2 Sat by Pulse Oximetry: 98 Medical Decision Making Medical Decision Making: workup initiated for psychiatric complaint and medical clearance labs reviewed chronic elevation of lipase, which is mildly increased from prior. +admission to [facility] ~1.5 wks ago for pancreatitis, Dr Carr saw patient, consult reviewed. Dr Bruno schreiber, Dr Fleming GI fellow returned call and recommended CT, if no evidence of pancreatitis on CT can go to psych floor for consult. Otherwise admit medicine and IVF. Patient states his pain is similar to prior, not worsened. 00:00 Patient signed out to Dr. Romero, pending CT If unremarkable CT admit to Psychiatry If evidence of pancreatitis admit to med/surg Scribe Attestation: Documented by Kia Soriano, acting as a scribe for Hollis Israel III DO Provider Scribe Attestation: All medical record entries made by the Scribe were at my direction and personally dictated by me. I have reviewed the chart and agree that the record accurately reflects my personal performance of the history, physical exam, medical decision making, and the department course for this patient. I have also personally directed, reviewed, and agree with the discharge instructions and disposition. Disposition - Clinical Impression Clinical Impression: Psychotic disorder, Chronic pancreatitis - Patient ED Disposition Is Patient to be Admitted: Transfer of Care - Disposition Disposition: Transfer of Care Disposition Time: 17:45 Condition: STABLE Patient Signed Over To: Balwinder Romero Handoff Comments: pending CT - Pt Status Changed To: Hospital Disposition Of: Inpatient - Admit Certification Admit to Inpatient:: After my assessment, the patient will require hospitalization for at least two midnights. This is because of the severity of symptoms shown, intensity of services needed, and/or the medical risk in this patient being treated as an outpatient.
[2016-11-16 16:27] LABS: BASO % 0.6 % (0.0-2.0); EOS # 0.3 K/uL (0.0-0.7); EOS % 3.5 % (0.0-4.0); LYMPH # 2.2 K/uL (1.0-4.3); LYMPH % 26.8 % (20.0-40.0); MEAN CELL VOLUME 90.9 fl (80.0-94.0); MEAN CORPUSCULAR HEMOGLOBIN 29.6 pg (27.0-31.0); MEAN CORPUSCULAR HGB CONC 32.5 g/dL (33.0-37.0); MEAN PLATELET VOLUME 7.7 fl (7.2-11.7); MONO # 0.6 K/uL (0.0-0.8); MONO % 6.8 % (0.0-10.0); NEUT # 5.1 K/uL (1.8-7.0); NEUT % 62.3 % (50.0-75.0); NRBC % 0.3 % (0.0-0.0); RED CELL DISTRIBUTION WIDTH 14.7 % (11.5-14.5); WHITE BLOOD COUNT 8.1 K/uL (4.8-10.8)
[2016-11-16 16:44] LABS: ALB/GLOB RATIO 1.3 (1.0-2.1); ALCOHOL SERUM < 10 mg/dl (0-10); ALKALINE PHOSPHATASE 89 U/L (38-126); ALT/SGPT 47 U/L (21-72); AST/SGOT 32 U/L (17-59); BILIRUBIN,TOTAL 0.7 mg/dl (0.2-1.3); BLOOD UREA NITROGEN 10 mg/dl (9-20); CALCIUM 9.4 mg/dL (8.4-10.2); CARBON DIOXIDE 23 mmol/L (22-30); CHLORIDE 107 mmol/L (98-107); GFR AFRICAN-AMERICAN > 60; GLUCOSE,RANDOM 92 mg/dL (75-110); SODIUM 140 mmol/l (132-148); TOTAL PROTEIN 7.3 G/DL (6.3-8.2)
[2016-11-16 17:00] LABS: LIPASE 3359 U/L (23-300)
[2016-11-16] MEDS ORDERED: Sodium Chloride 0.9% 50 ML IV ONE (21:33)
[2016-11-16] MEDS ORDERED: Iohexol 300 100 ML IJ ONE (21:33)
[2016-11-16 23:46] VITALS: O2SAT 98
[2016-11-16] MEDS ORDERED: Oxycodone/Acetaminophen 5/325 mg Tab PO STA (23:47)
[2016-11-16] MEDS ORDERED: Oxycodone/Acetaminophen 5/325 mg Tab ONE (23:51)
[2016-11-16] MEDS: Lactated Ringer's 1,000 ML IV SCH (23:53)
--- NOTE | 2016-11-17 00:25 | ED PDOC ---
- Laboratory Results Result Diagrams: 11/16/16 16:12 11/16/16 16:12 - ECG O2 Sat by Pulse Oximetry: 98 Medical Decision Making Medical Decision Makin Patient signed out to me pending CT If unremarkable will be admitted to psych If unremarkable will be admitted to med/surg 0024 CT FINDINGS: Lower thorax: No acute findings. ABDOMEN: Liver: Fatty infiltration. Gallbladder and bile ducts: Cholecystectomy. No ductal dilation. Pancreas: No definite peripancreatic stranding. No ductal dilation. Spleen: No splenomegaly. Adrenals: No mass. Kidneys and ureters: Small LEFT renal cyst. No hydronephrosis. Stomach and bowel: Fluid within small bowel. Fluid/loose stool within large bowel. Apparent mild mural/fold thickening of few jejunal loops. No associated inflammatory stranding. Probable underdistention distal sigmoid colon/rectum. Few minimally distended loops of small bowel, likely ileus. Appendix: No findings to suggest acute appendicitis. PELVIS: Bladder: Borderline bladder wall thickening, up to 5 mm. Incomplete distention, limiting evaluation. Reproductive: Unremarkable as visualized. ABDOMEN and PELVIS: Intraperitoneal space: No significant fluid collection. No free air. Bones/joints: No acute fracture. Soft tissues: Unremarkable. Vasculature: Unremarkable. No aneurysm. Lymph nodes: No pathologically enlarged lymph nodes. IMPRESSION: 1. Possible mild enteritis. Clinical correlation is needed. 2. Mild cystitis vs underdistention. Correlate with urinalysis. 3. Incidental/non-acute findings are described above. No CT evidence of pancreatitis. Scribe Attestation: Documented by Kia Soriano, acting as a scribe for Balwinder Romero MD Provider Scribe Attestation: All medical record entries made by the Scribe were at my direction and personally dictated by me. I have reviewed the chart and agree that the record accurately reflects my personal performance of the history, physical exam, medical decision making, and the department course for this patient. I have also personally directed, reviewed, and agree with the discharge instructions and disposition. Disposition - Clinical Impression Clinical Impression: Psychotic disorder - POA Present On Arrival: None - Disposition Disposition: Admitted as In-Patient Disposition Time: 00:30 Condition: STABLE
--- NOTE | 2016-11-17 00:25 | CT ---
EXAM: CT Abdomen and Pelvis With Intravenous Contrast CLINICAL HISTORY: 40 years old, male; Pain; Abdominal pain; Generalized; Additional info: Pancreatitis TECHNIQUE: Axial computed tomography images of the abdomen and pelvis with intravenous contrast. All CT scans at this facility use one or more dose reduction techniques, viz.: automated exposure control; ma/kV adjustment per patient size (including targeted exams where dose is matched to indication; i.e. head); or iterative reconstruction technique. Coronal and sagittal reformatted images were created and reviewed. CONTRAST: 90 mL of [id number] administered intravenously. COMPARISON: CT - CHEST,ABD,PEL W/IV CONT ONLY 07/29/2016 6:47:25 PM FINDINGS: Lower thorax: No acute findings. ABDOMEN: Liver: Fatty infiltration. Gallbladder and bile ducts: Cholecystectomy. No ductal dilation. Pancreas: No definite peripancreatic stranding. No ductal dilation. Spleen: No splenomegaly. Adrenals: No mass. Kidneys and ureters: Small LEFT renal cyst. No hydronephrosis. Stomach and bowel: Fluid within small bowel. Fluid/loose stool within large bowel. Apparent mild mural/fold thickening of few jejunal loops. No associated inflammatory stranding. Probable underdistention distal sigmoid colon/rectum. Few minimally distended loops of small bowel, likely ileus. Appendix: No findings to suggest acute appendicitis. PELVIS: Bladder: Borderline bladder wall thickening, up to 5 mm. Incomplete distention, limiting evaluation. Reproductive: Unremarkable as visualized. ABDOMEN and PELVIS: Intraperitoneal space: No significant fluid collection. No free air. Bones/joints: No acute fracture. Soft tissues: Unremarkable. Vasculature: Unremarkable. No aneurysm. Lymph nodes: No pathologically enlarged lymph nodes. IMPRESSION: 1. Possible mild enteritis. Clinical correlation is needed. 2. Mild cystitis vs underdistention. Correlate with urinalysis. 3. Incidental/non-acute findings are described above.
[2016-11-17] MEDS: Lactated Ringer's 1,000 ML IV SCH (01:17)
[2016-11-17] MEDS ORDERED: Magnesium Hydroxide Susp 30 ml UD PO PRN (01:32)
[2016-11-17] MEDS ORDERED: Alum-Mag Hydrox-Simethicone Susp (30 mL) PO PRN (01:32)
[2016-11-17] MEDS ORDERED: DiphenhydrAMINE 50 mg/ml Inj IM PRN (01:32)
--- NOTE | 2016-11-17 02:06 | PCM.BM ---
<Fredy Jett - Last Filed: 11/17/16 02:05> Treatment Plan Problems - Problems identified on initial assessmt Command/Auditory hallucinations Date Initiated: 11/17/16 Time Initiated: 02:05 Assessment reference: NA Status: Active Treatment assets and liabiliti Patient Assests: adapts well, cooperative, negotiates basic needs, cognitively intact, good interpersonal skills Patient Liabilities: physical pain, financial problems, substance abuse - Milieu Protocol Maintain good personal hygiene: daily Encourage regular showers, daily Remind patient to perform daily oral care, daily Assist patient to perform ADL's Maintain personal safety: every shift Educate patient to report safety concerns to staff, every shift Monitor environment for contraband/sharps Medication safety: Monitor for expected outcome, potential side effects: every shift, Assess barriers to learning: every shift, Assess readiness for medication education: every shift <Ankur Dodson - Last Filed: 11/19/16 08:50> Family Contact Family contact: Patient agrees to contact, Family has been contacted by patient , Telephone contact initiated by staff Family contact name: Brittney (Mother) Family contacted how many times per week?: 2 - Outside Agency Agency 1 Agency contact name: Dr. Suersh - [facility] - Goals for Treatment Patient goals for treatment: Pt would like the auditory hallucinations to stop. Discharge/Continuing Care - Education Needs Education Needs: Patient Medication, Patient Diagnosis/Disease Process - Discharge Discharge Criteria: Tolerates medication w/o severe side effects, Free of Suicidal thoughts, Reduction of target symptoms Discharge to:: Home
[2016-11-17] MEDS ORDERED: Bismuth Subsalicylate 262 mg/15 ml Sus (240 ml) PO PRN (02:56)
--- NOTE | 2016-11-17 07:22 | CP.PCM.HP ---
History of Present Illness - History of Present Illness History of Present Illness: pt admitted for hearing voices and SI. no plan. no abd pain. c/o headache. bw noted. Present on Admission - Present on Admission Any Indicators Present on Admission: No Review of Systems - Neurological Neurological: As Per HPI, Headaches - Psychiatric Psychiatric: As Per HPI, Hallucinations, Suicidal Ideation Past Patient History - Infectious Disease Hx of Infectious Diseases: None - Tetanus Immunizations Tetanus Immunization: Unknown - Past Medical History & Family History Past Medical History?: Yes - Past Social History Alcohol: None Drugs: Cannabis - CARDIAC Hx Congestive Heart Failure: No - PULMONARY Hx Asthma: Yes - NEUROLOGICAL Hx Seizures: No - HEENT Hx HEENT Problems: No - RENAL Hx Chronic Kidney Disease: No - ENDOCRINE/METABOLIC Hx Endocrine Disorders: No - HEMATOLOGICAL/ONCOLOGICAL Hx Human Immunodeficiency Virus (HIV): No - INTEGUMENTARY Hx Dermatological Problems: No - MUSCULOSKELETAL/RHEUMATOLOGICAL Hx Fractures: No Hx Spinal Stenosis: Yes - GASTROINTESTINAL Hx Gall Bladder Disease: Yes Hx Pancreatitis: Yes - GENITOURINARY/GYNECOLOGICAL Hx Sexually Transmitted Disorders: No - PSYCHIATRIC Hx Depression: Yes Hx Substance Use: Yes - SURGICAL HISTORY Hx Surgeries: Yes Hx Cholecystectomy: Yes (2004) - ANESTHESIA Hx Anesthesia: Yes Hx Anesthesia Reactions: No Hx Malignant Hyperthermia: No Meds Allergies/Adverse Reactions: Allergies Allergy/AdvReac Type Severity Reaction Status Date / Time No Known Allergies Allergy Verified 11/17/16 03:07 Physical Exam - Constitutional Appears: Well, Non-toxic, No Acute Distress - Head Exam Head Exam: ATRAUMATIC, NORMAL INSPECTION, NORMOCEPHALIC - Eye Exam Eye Exam: EOMI, Normal appearance, PERRL Pupil Exam: NORMAL ACCOMODATION, PERRL - ENT Exam ENT Exam: Mucous Membranes Moist, Normal Exam - Neck Exam Neck exam: Positive for: Normal Inspection - Respiratory Exam Respiratory Exam: Clear to Auscultation Bilateral, NORMAL BREATHING PATTERN - Cardiovascular Exam Cardiovascular Exam: REGULAR RHYTHM, RRR, +S1, +S2 - GI/Abdominal Exam GI & Abdominal Exam: Normal Bowel Sounds, Soft. absent: Tenderness - Extremities Exam Extremities exam: Positive for: full ROM, normal capillary refill, normal inspection, pedal pulses present - Back Exam Back exam: NORMAL INSPECTION - Neurological Exam Neurological exam: Alert, CN II-XII Intact, Normal Gait, Oriented x3, Reflexes Normal - Psychiatric Exam Psychiatric exam: Normal Affect, Normal Mood - Skin Skin Exam: Dry, Intact, Normal Color, Warm Results - Vital Signs Recent Vital Signs: Last Vital Signs Temp 97.3 F L 11/17/16 01:35 Pulse 55 L 11/17/16 02:00 Resp 18 11/17/16 02:00 BP 139/87 11/17/16 01:35 Pulse Ox 98 11/17/16 01:52 - Labs Result Diagrams: 11/16/16 16:12 11/16/16 16:12 Assessment & Plan (1) Headache Assessment and Plan: tylenol prn Status: Acute (2) Psychotic disorder Assessment and Plan: cont plan per psych, meds interventions therapies Status: Acute (3) DVT prophylaxis Assessment and Plan: scd nad ae hose aqmbulation Status: Acute Decision To Admit - Pt Status Changed To: Hospital Disposition Of: Inpatient - Admit Certification Admit to Inpatient:: After my assessment, the patient will require hospitalization for at least two midnights. This is because of the severity of symptoms shown, intensity of services needed, and/or the medical risk in this patient being treated as an outpatient. - . Bed Request Type: Adult Psychiatry Admitting Physician: Jessica Randhawa
--- NOTE | 2016-11-17 08:04 | CARD ---
APPROVED REPORT EKG Measurement Heart [id number] <Conclusion> Sinus bradycardia Otherwise normal ECG
[2016-11-17 08:24] LABS: T4 7.15 ug/dl (5.5-11.0)
[2016-11-17 08:38] LABS: THYROID STIMULATING HORMONE 3.66 mIU/ML (0.46-4.68)
[2016-11-17] MEDS ORDERED: Influenza Vaccine 18yr & older 0.5 ML/45 MCG SYR IM ONE (09:00)
--- NOTE | 2016-11-17 11:21 | PCM.PSYCH ---
Initial Psychiatric Evaluation - Initial Psychiatric Evaluation Type of Admission: Voluntary Legal Status: Capacity Chief Complaint (in patient's own words): i heard a female voice Patient's Reaction to Hospitalization: cooperative History of Present Illness and Precipitating Events: pt reports he has been depressed at different times in his life, but has never sought treatment until thursday11/14/[address] mccord at [facility]. states he was started on zoloft at that time. states his depression is characterized by low energy, poor concentration, feeling irritable and feeling hopeless and isolating from friends/family. he states he has reduction in appetite. he states he has suicidal thoughts, but does not want to act on it. he reports onset of voice is new. it is a female voice telling him he is worthless and that he should just end his life. pt denies any manic episodes. pt states he uses mj, but denies other substance use. he does have history of pancreatitis and chart indicates he was a polysubstance abuser. he was confronted with uds positive for cocaine and states "it was the first time i ever used it...my friends were using it and i thought it might help boost my mood" per chart pt has uds positive for cocaine and opiates in past. 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 he states he is in the middle of a divorce and has 2 children Current Medications: Active Medications Generic Name Dose Route Start Last Admin Trade Name Freq PRN Reason Stop Dose Admin Acetaminophen 650 mg 11/17/16 01:32 Tylenol 325mg Tab PO Q4 PRN for pain 4-7 Al Hydrox/Mg Hydrox/Simethicone 30 ml 11/17/16 01:32 Maalox Plus 30 Ml PO Q4 PRN Dyspepsia Bismuth Subsalicylate 524 mg 11/17/16 02:56 Pepto-Bismol PO Q4 PRN Diarrhea Diphenhydramine HCl 50 mg 11/17/16 01:32 Benadryl IM Q6 PRN Extrapyramidal S/S Unable PO Diphenhydramine HCl 50 mg 11/17/16 01:32 Benadryl PO Q6 PRN Extrapyramidal Symptoms Diphenhydramine HCl 50 mg 11/17/16 01:32 11/17/16 02:11 Benadryl PO 50 mg HS PRN Administration Sleep Folic Acid 1 mg 11/17/16 11:15 Folic Acid PO DAILY JAYNE Haloperidol 5 mg 11/17/16 01:32 11/17/16 04:35 Haldol PO 5 mg Q4 PRN Administration Agitation Haloperidol Lactate 5 mg 11/17/16 01:32 Haldol IM Q4 PRN Agitation, Unable to Take PO Lorazepam 2 mg 11/17/16 01:32 Ativan IM Q4 PRN Anxiety/Agitation,Unable PO Lorazepam 2 mg 11/17/16 01:32 Ativan PO Q4 PRN Anxiety/Agitation Magnesium Hydroxide 30 ml 11/17/16 01:32 Milk Of Magnesia PO HS PRN Constipation Risperidone 0.5 mg 11/17/16 22:00 Risperdal M-Tab PO HS JAYNE Sertraline HCl 25 mg 11/17/16 11:15 Zoloft PO DAILY JAYNE zoloft 50mg just started as outpt. Past Psychiatric History - Past Psychiatric History Previous Treatment History: None Prior Professional Help: reports first psychiatry visit was last week History of Abuse: denies History of ETOH/Drug Use: denies substance use outside of mj. states he used to smoke 1 pack a day of cigarettes but has quit recently, but is still having cravings. uds positive for mj and cocaine. History of Family Illness: denies Pertinent Medical Hx (Current Medical&Sleep Prob, Allergies): Allergies Allergy/AdvReac Type Severity Reaction Status Date / Time No Known Allergies Allergy Verified 11/17/16 03:07 Lipase/Protease/Amylase [Torres Dr 6,000 Units Capsule] 1 cap PO DAILY 08/20/16 Folic Acid 1 mg PO DAILY #30 tab 08/23/16 Ondansetron HCl [Zofran] 4 mg PO Q6 #12 tablet 08/23/16 Albuterol HFA [Ventolin HFA 90 mcg/actuation (8 g)] 2 puff INH Q6 PRN 11/17/16 Amylase/Lipase/Protease [Pancrease 81165 [id number] U] 6,000 u PO TID Fludrocortisone [Florinef] 0.1 mg PO DAILY 11/17/16 history of pancreatitis Review of Systems - Psychiatric Psychiatric: As Per HPI Mental Status Examination - Personal Presentation Personal Presentation: Looks stated age - Affect Affect: Broad - Motor Activity Motor Activity: Calm - Reliability in Providing Information Reliability in Providing Information: Good - Speech Speech: Organized - Mood Mood: Depressed - Formal Thought Process Formal Thought Process: Hallucinations - Hallucinations/Delusions Hallucinations: Auditory - Obsessions/Compulsions Obsessions: No Compulsions: No - Cognitive Functions Orientation: Person, Place, Situation, Time Sensorium: Alert Attention/Concentration: Attentive Abstract Thinking: [place] Judgement: Intact, as evidence by: Insight regarding need for hospitalization Memory: Recent intact, as evidence by: Ability to recall events of the day, Remote intact, as evidenced by: Abilit to recall sig. life events - Risk Risk: Suicidal (denies current intent), Diminished functioning - Strength & Assets Inventory Strength & Assets Inventory: Intelligence DSM 5 DX - DSM 5 DSM 5 Diagnosis: major depression recurrent severe with psychosis history of cocaine, cannabis, opioid abuse - Recommended/Plan of Treatment Treatment Recommendations and Plan of Treatment: admit to [facility] for safety and observation gather collateral information provide supportive therapy adjust medications- start zoloft and add risperdal low dose at hs. nicotine patch for cravings. discussed r/b/se with pt hospitalist consult disposition planning Projected ELOS: 3-5 days Prognosis: fair - Smoking Cessation Smoking Cessation Initiated: Yes
--- NOTE | 2016-11-17 11:28 | RAD ---
HISTORY: The only clinical history provided is "rule out infiltrate". COMPARISON: 07/29/2016 TECHNIQUE: Chest PA and lateral FINDINGS: LUNGS: No active pulmonary disease. PLEURA: No significant pleural effusion identified. No pneumothorax apparent. CARDIOVASCULAR: Normal. OSSEOUS STRUCTURES: No significant abnormalities. VISUALIZED UPPER ABDOMEN: Normal. OTHER FINDINGS: None. IMPRESSION: No active disease. No significant interval change compared to the prior examination(s).
[2016-11-17] MEDS: Risperidone M tab 0.5MG PO SCH (21:24)
--- NOTE | 2016-11-18 11:39 | PCM.PYCHPN ---
Psychiatric Progress Note - Psychiatric Progress Note Patient seen today, length of contact: discussed with team Patient Chief Complaint: the voices went away Problems Identified/Issues Discussed: pt did not go to groups. states the risperdal made him tired this am when he woke up. he does states his thoughts are more clear and he is not hearing a voice any more. now he is asking about when he can leave the hospital. Medication Change: Yes Medical Record Reviewed: No Mental Status Examination - Cognitive Function Orientation: Person, Place, Situation, Time Memory: Intact Attention: WNL Concentration: WNL Association: WNL Fund of Knowledge: [facility] Decription of patient's judgement and insights: fair - Mood Mood: Depressed - Affect Affect: Broad - Speech Speech: Appropriate - Formal Thought Process Formal Thought Process: No Impairment Psychotic Thoughts and Behaviors: denies a/v hallucinations - Suicidal Ideation Suicidal Ideation: No - Homicidal Ideation Homicidal Ideation: No Goal/Treatment Plan - Goal/Treatment Plan Need for Continued Stay: Remain at risks for inpatient hospitalization, Severe functional impairment Progress Toward Problem(s) and Goals/Treatment Plan: mdd recurrent cannabis use hx of cocaine use will continue current treatment [facility] pt wants to return to dr. mccord. Estimated Date of D/C: 11/21/16
[2016-11-18] MEDS: Risperidone M tab 0.5MG PO SCH (21:28)
--- NOTE | 2016-11-19 08:42 | CP.PCM.PN ---
Subjective - Date & Time of Evaluation Date of Evaluation: 11/19/16 Time of Evaluation: 08:40 - Subjective Subjective: doign well, no f/c, n/v/d. no si. not hearing voices case d/c w/ dr mahoney Objective - Vital Signs/Intake and Output Vital Signs (last 24 hours): Temp Pulse Resp BP Pulse Ox 98.4 F 58 L 18 127/86 98 11/18/16 17:00 11/18/16 17:00 11/18/16 17:00 11/18/16 17:00 11/17/16 14:09 - Medications Medications: Current Medications Acetaminophen (Tylenol 325mg Tab) 650 mg PO Q4 PRN PRN Reason: for pain 4-7 Al Hydrox/Mg Hydrox/Simethicone (Maalox Plus 30 Ml) 30 ml PO Q4 PRN PRN Reason: Dyspepsia Bismuth Subsalicylate (Pepto-Bismol) 524 mg PO Q4 PRN PRN Reason: Diarrhea Last Admin: 11/18/16 13:33 Dose: 524 mg Diphenhydramine HCl (Benadryl) 50 mg IM Q6 PRN PRN Reason: Extrapyramidal S/S Unable PO Diphenhydramine HCl (Benadryl) 50 mg PO Q6 PRN PRN Reason: Extrapyramidal Symptoms Diphenhydramine HCl (Benadryl) 50 mg PO HS PRN PRN Reason: Sleep Last Admin: 11/17/16 02:11 Dose: 50 mg Folic Acid (Folic Acid) 1 mg PO DAILY [facility] Last Admin: 11/18/16 09:49 Dose: 1 mg Haloperidol (Haldol) 5 mg PO Q4 PRN PRN Reason: Agitation Last Admin: 11/17/16 04:35 Dose: 5 mg Haloperidol Lactate (Haldol) 5 mg IM Q4 PRN PRN Reason: Agitation, Unable to Take PO Lorazepam (Ativan) 2 mg IM Q4 PRN PRN Reason: Anxiety/Agitation,Unable PO Lorazepam (Ativan) 2 mg PO Q4 PRN PRN Reason: Anxiety/Agitation Magnesium Hydroxide (Milk Of Magnesia) 30 ml PO HS PRN PRN Reason: Constipation Nicotine (Nicoderm Cq) 1 patch TD DAILY [facility] Last Admin: 11/18/16 09:48 Dose: 1 patch Risperidone (Risperdal M-Tab) 0.5 mg PO HS [facility] Last Admin: 11/18/16 21:28 Dose: 0.5 mg Sertraline HCl (Zoloft) 50 mg PO DAILY JYANE - Labs Labs: 11/16/16 16:12 11/16/16 16:12 - Constitutional Appears: Well, Non-toxic, No Acute Distress - Head Exam Head Exam: ATRAUMATIC, NORMAL INSPECTION, NORMOCEPHALIC - Eye Exam Eye Exam: EOMI, Normal appearance, PERRL Pupil Exam: NORMAL ACCOMODATION, PERRL - ENT Exam ENT Exam: Mucous Membranes Moist, Normal Exam - Neck Exam Neck Exam: Full ROM, Normal Inspection. absent: Lymphadenopathy - Respiratory Exam Respiratory Exam: Clear to Ausculation Bilateral, NORMAL BREATHING PATTERN - Cardiovascular Exam Cardiovascular Exam: REGULAR RHYTHM, RRR, +S1, +S2. absent: Murmur - GI/Abdominal Exam GI & Abdominal Exam: Soft, Normal Bowel Sounds. absent: Tenderness - Extremities Exam Extremities Exam: Full ROM, Normal Capillary Refill, Normal Inspection. absent : Joint Swelling, Pedal Edema - Back Exam Back Exam: NORMAL INSPECTION - Neurological Exam Neurological Exam: Alert, Awake, CN II-XII Intact, Normal Gait, Oriented x3 - Psychiatric Exam Psychiatric exam: Normal Affect, Normal Mood - Skin Skin Exam: Dry, Intact, Normal Color, Warm Assessment and Plan (1) Headache Status: Acute (2) Psychotic disorder Status: Acute (3) DVT prophylaxis Status: Acute - Assessment and Plan (Free Text) Assessment: (1) Headache Assessment and Plan: tylenol prn Status: Acute (2) Psychotic disorder Assessment and Plan: cont plan per psych, meds interventions therapies Status: Acute (3) DVT prophylaxis Assessment and Plan: scd nad ae hose aqmbulation Status: Acute
--- NOTE | 2016-11-19 09:39 | PCM.PYCHPN ---
Psychiatric Progress Note - Psychiatric Progress Note Patient seen today, length of contact: discussed with team Patient Chief Complaint: i feel better Problems Identified/Issues Discussed: pt attending groups. good participation. no c./o medication side effects. states he is no longer hearing voices. is willing to return to his outpt providers. Medication Change: Yes Medical Record Reviewed: No Mental Status Examination - Cognitive Function Orientation: Person, Place, Situation, Time Memory: Intact Attention: WNL Concentration: WNL Association: WNL Fund of Knowledge: [facility] Decription of patient's judgement and insights: fair - Mood Mood: Depressed - Affect Affect: Broad - Speech Speech: Appropriate - Formal Thought Process Formal Thought Process: No Impairment Psychotic Thoughts and Behaviors: denies a/v hallucinations - Suicidal Ideation Suicidal Ideation: No - Homicidal Ideation Homicidal Ideation: No Goal/Treatment Plan - Goal/Treatment Plan Need for Continued Stay: Remain at risks for inpatient hospitalization, Severe functional impairment Progress Toward Problem(s) and Goals/Treatment Plan: mdd recurrent cannabis use hx of cocaine use will continue current treatment will increase in zoloft tomorrow pt wants to return to dr. mccord. discharge tomorrow Estimated Date of D/C: 11/20/16
[2016-11-19] MEDS: Risperidone M tab 0.5MG PO SCH (21:16)
[2016-11-20 09:18] VITALS: BP 121/92; PULSE 83; RESP 18; TEMP 97.5
--- NOTE | 2016-11-20 10:08 | PCM.PYCHDC ---
Mental Status Examination - Mental Status Examination Orientation: Person, Place, Situation, Time Memory: Intact Mood: Neutral Affect: Broad Speech: Appropriate Attention: WNL Concentration: WNL Association: WNL Fund of Knowledge: WNL Formal Thought Process: No Impairment Description of patient's judgement and insight: fair Psychotic Thoughts and Behaviors: denies a/v hallucinations Suicidal Ideation: No Current Homicidal Ideation?: No Plan: pt denies any suicidal or homicidal thoughts Discharge Summary - Discharge Note Reason for Hospitalization: pt reported depressiona nd suicidal thoughts Psychiatric History (includes Medical, Family, Personal Hx): no previous psychiatric history Consultations:: List each consultation separately and include: 1. Reason for request. 2. Findings. 3. Follow-up Consultations: followed by his primary medical provider during his hospital stay. Summary of Hospital Course include:: 1. Description of specific treatment plan utilized for patients during their course of treatmen. 2. Summarize the time- course for resolution of acute symptoms and/or regressed behaviors. 3. Describe issues identified and worked on during hospitalization. 4. Describe medication utilized. 5. Describe medical problems identified and treated. 6. Reassessment of suicide risk Summary of Hospital Course: pt reports he has been depressed at different times in his life, but has never sought treatment until thursday11/14/[address] mcocrd at [place]. states he was started on zoloft at that time. states his depression is characterized by low energy, poor concentration, feeling irritable and feeling hopeless and isolating from friends/family. he states he has reduction in appetite. he states he has suicidal thoughts, but does not want to act on it. he reports onset of voice is new. it is a female voice telling him he is worthless and that he should just end his life. pt denies any manic episodes. pt states he uses mj, but denies other substance use. he does have history of pancreatitis and chart indicates he was a polysubstance abuser. he was confronted with uds positive for cocaine and states "it was the first time i ever used it...my friends were using it and i thought it might help boost my mood" per chart pt has uds positive for cocaine and opiates in past. 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 he states he is in the middle of a divorce and has 2 children hospital course pt was admitted to [facility] and oriented to the unit. pt was placed on routine safety protocols. pt was started on zoloft and risperdal to target his depression and psychosis. he attended the groups on the unit and was an active participant. he agreed he was minimizing his substance abuse history/problems and was agreeable to a referral to [facility] in addition to returning to his outpt psychiatrist, which whom he had just been connected. at the time of discharged he was future oriented, goal directed and denying any psychotic symptoms. he was denying suicidal or homicidal thoughts/plans or intent at the time of discharge. - Final Diagnosis (DSM 5) Condition upon Discharge: STABLE DSM 5: major depression recurrent moderate polysubstance abuse Disposition: HOME/ ROUTINE Follow-up Treatment Plan: follow up with aftercare as directed take medications as prescribed do not use alcohol, tobacco or other illicit substances call 911 if any suicidal or homicidal thoughts attend aa/na meetings regularly Prescriptions/Medication Reconciliation: Folic Acid 1 mg PO DAILY #30 tab Nicotine 7 mg/24 hr [Nicoderm CQ] 1 patch TD DAILY #28 patch Risperidone [Risperdal] 1 mg PO HS #30 tablet Sertraline [Zoloft] 50 mg PO DAILY #30 tab - Smoking Cessation Smoking Cessation Medication prescribed: Yes - Antipsychotic Medications Pt discharged on 2 or more routine antipsychotic medications: No
== END 2016-11-20 15:30 | disposition home or self-care (01) | DRG 430 ==
LOC: H.ER 15:24 → H.ERHOLD 17:45 → H.PSYCH 11-17 01:27
PROVIDERS: ADMIT Psychiatry & Neurology Psychiatry; ATTEND Psychiatry & Neurology Psychiatry
DX: F33.3 Major depressive disorder, recurrent, severe with psychotic symptoms (principal); K76.0 Fatty (change of) liver, not elsewhere classified; K56.7 Ileus, unspecified; K86.1 Other chronic pancreatitis; N28.1 Cyst of kidney, acquired; R45.851 Suicidal ideations; N30.90 Cystitis, unspecified without hematuria; F17.200 Nicotine dependence, unspecified, uncomplicated; F12.90 Cannabis use, unspecified, uncomplicated; F19.10 Other psychoactive substance abuse, uncomplicated; J45.909 Unspecified asthma, uncomplicated; M06.9 Rheumatoid arthritis, unspecified; Z79.899 Other long term (current) drug therapy; Z90.49 Acquired absence of other specified parts of digestive tract; R10.13 Epigastric pain; Z87.898 Personal history of other specified conditions; R51 Headache; K52.9 Noninfective gastroenteritis and colitis, unspecified

== ENCOUNTER 2016-12-09 10:31 | Observation (INO) | payer MEDICAID ==
[2016-12-09 10:40] VITALS: BMI 27.4
[2016-12-09] MEDS ORDERED: Sodium Chloride 0.9% 1,000 ML IV STA ×3 (11:13→12:24)
--- NOTE | 2016-12-09 11:21 | ED PDOC ---
HPI: General Adult Time Seen by Provider: 12/09/16 10:38 Chief Complaint (Nursing): Abdominal Pain History Per: Patient Additional Complaint(s): Pt. states last night he was eating brown rice and salmon when he developed nausea and a sudden onset of non-radiating epigastric abdominal pain. States pain is consistent with previous bouts of pancreatitis. Pt. states he did not take any medications to help relieve symptoms. Also reports 1 episode of diarrhea. Denies fever, melena, hematochezia, BRBPR, hematemesis, cough, chest pain, SOB. Past Medical History Vital Signs: Last Vital Signs Temp 97.5 F L 12/09/16 16:59 Pulse 54 L 12/09/16 16:59 Resp 18 12/09/16 16:59 BP 132/79 12/09/16 16:59 Pulse Ox 97 12/09/16 16:59 - Medical History PMH: Arthritis, Asthma, Back Problems (spinal stenosis), Depression, Gall Bladder Disease (removed GB), Pancreatitis, Rheumatoid Arthritis Denies: CHF, Colonic Polyps, COPD, Diabetes, Fractures, Hepatitis, HIV, HTN, Hypercholesterolemia, Hypothyroidism, Chronic Kidney Disease, Seizures, Sexually Transmitted Disease - Surgical History Surgical History: Cholecystectomy (2004), Endoscopy Denies: Pacemaker - Family History Family History: States: Unknown Family Hx - Immunization History Hx Tetanus Toxoid Vaccination: Yes Hx Influenza Vaccination: Yes Hx Pneumococcal Vaccination: Yes - Home Medications Home Medications: Ambulatory Orders Medication Instructions Recorded Albuterol HFA [Ventolin HFA 90 2 puff INH Q6 PRN 11/17/16 mcg/actuation (8 g)] Folic Acid 1 mg PO DAILY #30 tab 11/20/16 Nicotine 7 mg/24 hr [Nicoderm CQ] 1 patch TD DAILY #28 patch 11/20/16 Risperidone [Risperdal] 1 mg PO HS #30 tablet 11/20/16 Sertraline [Zoloft] 50 mg PO DAILY #30 tab 11/20/16 oxyCODONE/Acetaminophen [Percocet 1 tab PO Q8H PRN 12/09/16 5/325 mg Tab] - Allergies Allergies/Adverse Reactions: Allergies Allergy/AdvReac Type Severity Reaction Status Date / Time No Known Allergies Allergy Verified 12/09/16 10:59 - Laboratory Results Result Diagrams: 12/09/16 11:08 12/09/16 11:08 - ECG O2 Sat by Pulse Oximetry: 99 - Progress ED Course And Treament: Labs ordered. Toradol 15mg IM, pepcid 20mg IV, IV NS bolus x 3 ordered. Lipase elevated. Case d/w Dr. Townsend, pt.'s GI, who requests that pt. be admitted. Case d/w Thai Meneses and arrangements made for admission. Pt. reports no relief in pain. Morphine 6mg IV ordered. Disposition - Clinical Impression Clinical Impression: Pancreatitis - Patient ED Disposition Is Patient to be Admitted: Yes - Disposition Disposition Time: 12:36 Condition: STABLE
[2016-12-09 11:36] LABS: BASO # 0.1 K/uL (0.0-0.2); BASO % 0.8 % (0.0-2.0); EOS # 0.3 K/uL (0.0-0.7); EOS % 4.6 % (0.0-4.0); HEMATOCRIT 47.8 % (35.0-51.0); LYMPH # 1.8 K/uL (1.0-4.3); MEAN CELL VOLUME 90.3 fl (80.0-94.0); MEAN CORPUSCULAR HEMOGLOBIN 30.2 pg (27.0-31.0); MEAN CORPUSCULAR HGB CONC 33.5 g/dL (33.0-37.0); MEAN PLATELET VOLUME 7.9 fl (7.2-11.7); MONO # 0.5 K/uL (0.0-0.8); MONO % 6.1 % (0.0-10.0); NEUT # 4.9 K/uL (1.8-7.0); NEUT % 64.5 % (50.0-75.0); NRBC % 0.1 % (0.0-0.0); WHITE BLOOD COUNT 7.5 K/uL (4.8-10.8)
[2016-12-09 11:45] LABS: ALB/GLOB RATIO 1.3 (1.0-2.1); ALCOHOL SERUM < 10 mg/dl (0-10); ALKALINE PHOSPHATASE 81 U/L (38-126); ALT/SGPT 85 U/L (21-72); AST/SGOT 47 U/L (17-59); BILIRUBIN,TOTAL 0.3 mg/dl (0.2-1.3); BLOOD UREA NITROGEN 14 mg/dl (9-20); CALCIUM 9.6 mg/dL (8.4-10.2); CARBON DIOXIDE 23 mmol/L (22-30); CHLORIDE 108 mmol/L (98-107); GFR AFRICAN-AMERICAN > 60; GLUCOSE,RANDOM 97 mg/dL (75-110); POTASSIUM 4.3 MMOL/L (3.6-5.0); SODIUM 143 mmol/l (132-148); TOTAL PROTEIN 7.2 G/DL (6.3-8.2)
[2016-12-09 12:07] LABS: LIPASE 2038 U/L (23-300)
[2016-12-09] MEDS ORDERED: Albuterol HFA 90 mcg/actuation (8 g) INH PRN (12:51)
[2016-12-09] MEDS ORDERED: Oxycodone/Acetaminophen 5/325 mg Tab PO PRN (12:51)
[2016-12-09 13:12] LABS: RBC URINE 3 /hpf (0-3); URINE BILIRUBIN NEGATIVE (NEGATIVE); URINE BLOOD NEGATIVE (NEGATIVE); URINE COLOR YELLOW (YELLOW); URINE GLUCOSE (UA) NEG (Normal); URINE KETONE NEGATIVE (NEGATIVE); URINE LEUKOCYTE ESTERASE NEG Leu/uL (Negative); URINE PROTEIN NEGATIVE (NEGATIVE); URINE UROBILINOGEN 0.2-1.0 mg/dL (0.2-1.0); WBC URINE < 1 /hpf (0-5)
--- NOTE | 2016-12-09 14:57 | CP.PCM.CON ---
<Temi Montemayor - Last Filed: 12/09/16 15:27> History of Present Illness - History of Present Illness History of Present Illness: GI Fellow PGY4 Consult Note This is a 40yM with PMHx of pancreatic divisum, chronic pancreatitis, bradycardia, spinal stenosis and asthma who presents with epigastric abdominal. Pt reports abdominal pain, epigastric nonradiating which started 2days ago and worsened yesterday with nausea and vomiting, bilious nonbloodyx2. Pt reports 2 episodes of watery diarrhea. His symptoms started soon after eating brown rice, salmon, and green beans. He denies any fever, chills, headaches, sob, chest pain , palpitations, urinary changes. Pt was recently admitted for inpt psych with hallucinations and depression and at that time UDS was also positive for cocaine and marijuana as it is today. ROS: 12 point ROS performed and negative other than stated above. 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 FHX: Grandfather with pancreatic ca, aunt with stomach cancer, grandmother with colon ca Endo Hx: 05/05/16 - s/p ERCP with minor Papillotomy and placement of plastic pancreatic stent; 06/13/16- s/p stent removal Past Patient History - Infectious Disease Hx of Infectious Diseases: None - Tetanus Immunizations Tetanus Immunization: Unknown - Past Medical History & Family History Past Medical History?: Yes - Past Social History Smoking Status: Light Smoker < 10 Cigarettes Daily - CARDIAC Hx Congestive Heart Failure: No Hx Hypercholesterolemia: No Hx Hypertension: No Hx Pacemaker: No - PULMONARY Hx Asthma: Yes Hx Chronic Obstructive Pulmonary Disease (COPD): No - NEUROLOGICAL Hx Seizures: No - HEENT Hx HEENT Problems: No - RENAL Hx Chronic Kidney Disease: No - ENDOCRINE/METABOLIC Hx Hypothyroidism: No - HEMATOLOGICAL/ONCOLOGICAL Hx Human Immunodeficiency Virus (HIV): No - INTEGUMENTARY Hx Dermatological Problems: No - MUSCULOSKELETAL/RHEUMATOLOGICAL Hx Arthritis: Yes Hx Fractures: No Hx Rheumatoid Arthritis: Yes - GASTROINTESTINAL Hx Gall Bladder Disease: Yes (removed GB) Hx Pancreatitis: Yes - GENITOURINARY/GYNECOLOGICAL Hx Sexually Transmitted Disorders: No - PSYCHIATRIC Hx Depression: Yes - SURGICAL HISTORY Hx Cholecystectomy: Yes (2004) - ANESTHESIA Hx Anesthesia: Yes Hx Anesthesia Reactions: No Hx Malignant Hyperthermia: No Meds Allergies/Adverse Reactions: Allergies Allergy/AdvReac Type Severity Reaction Status Date / Time No Known Allergies Allergy Verified 12/09/16 10:59 - Medications Medications: Current Medications Acetaminophen (Tylenol 325mg Tab) 650 mg PO Q4 PRN PRN Reason: pain 1-5 Albuterol (Ventolin Hfa 90 Mcg/Actuation (8 G)) 2 puff INH Q6 PRN PRN Reason: Shortness of Breath Folic Acid (Folic Acid) 1 mg PO DAILY JAYNE Lactated Ringer's (Lactated Ringer's) 1,000 mls @ 150 mls/hr IV .Q6H40M JAYNE Ketorolac Tromethamine (Toradol) 30 mg IVP Q6 PRN PRN Reason: pain 6-10 Nicotine (Nicoderm Cq) 1 patch TD DAILY JAYNE Risperidone (Risperdal Tab) 1 mg PO HS JAYNE Sertraline HCl (Zoloft) 50 mg PO DAILY JAYNE Physical Exam - Constitutional Appears: Non-toxic, No Acute Distress - Head Exam Head Exam: ATRAUMATIC, NORMAL INSPECTION, NORMOCEPHALIC - Eye Exam Eye Exam: EOMI, Normal appearance, PERRL - ENT Exam ENT Exam: Mucous Membranes Moist, Normal Exam - Neck Exam Neck exam: Positive for: Normal Inspection - Respiratory Exam Respiratory Exam: Clear to Auscultation Bilateral, NORMAL BREATHING PATTERN - Cardiovascular Exam Cardiovascular Exam: RRR, +S1, +S2 - GI/Abdominal Exam GI & Abdominal Exam: Normal Bowel Sounds, Soft, Tenderness. absent: Distended, Organomegaly - Rectal Exam Rectal Exam: Deferred - Extremities Exam Extremities exam: Positive for: full ROM, normal inspection. Negative for: pedal edema - Back Exam Back exam: NORMAL INSPECTION - Neurological Exam Neurological exam: Alert, Oriented x3 - Psychiatric Exam Psychiatric exam: Normal Affect, Normal Mood - Skin Skin Exam: Dry, Intact, Normal Color, Warm Results - Vital Signs Recent Vital Signs: Last Vital Signs Temp 98.2 F 12/09/16 10:39 Pulse 82 12/09/16 10:39 Resp 20 12/09/16 10:39 BP 132/89 12/09/16 10:39 Pulse Ox 99 12/09/16 11:21 - Labs Result Diagrams: 12/09/16 11:08 12/09/16 11:08 Labs: Laboratory Results - last 24 hr 12/09/16 12/09/16 12/09/16 11:08 11:08 12:44 WBC 7.5 RBC 5.29 Hgb 16.0 Hct 47.8 MCV 90.3 MCH 30.2 MCHC 33.5 RDW 15.0 H Plt Count 262 MPV 7.9 Neut % (Auto) 64.5 Lymph % (Auto) 24.0 [place] % (Auto) 6.1 Eos % (Auto) 4.6 H Baso % (Auto) 0.8 Neut # 4.9 Lymph # 1.8 [place] # 0.5 Eos # 0.3 Baso # 0.1 Sodium 143 Potassium 4.3 Chloride 108 H Carbon Dioxide 23 Anion Gap 16 BUN 14 Creatinine 1.0 Est GFR ( Amer) > 60 Est GFR (Non-Af Amer) > 60 Random Glucose 97 Calcium 9.6 Total Bilirubin 0.3 AST 47 ALT 85 H D Alkaline Phosphatase 81 Total Protein 7.2 Albumin 4.0 Globulin 3.2 Albumin/Globulin Ratio 1.3 Lipase 2038 H Urine Color Yellow Urine Clarity Clear Urine pH 7.0 Ur Specific [place] 1.014 Urine Protein Negative Urine Glucose (UA) Neg Urine Ketones Negative Urine Blood Negative Urine Nitrate Negative Urine Bilirubin Negative Urine Urobilinogen 0.2-1.0 Ur Leukocyte Esterase Neg Urine RBC (Auto) 3 Urine Microscopic WBC < 1 Ur Squamous Epith Cells < 1 Urine Opiates Screen Urine Methadone Screen Ur Barbiturates Screen Ur Phencyclidine Scrn Ur Amphetamines Screen U Benzodiazepines Scrn U Oth Cocaine Metabols U Cannabinoids Screen Alcohol, Quantitative < 10 12/09/16 12:44 WBC RBC Hgb Hct MCV MCH MCHC RDW Plt Count MPV Neut % (Auto) Lymph % (Auto) [place] % (Auto) Eos % (Auto) Baso % (Auto) Neut # Lymph # [place] # Eos # Baso # Sodium Potassium Chloride Carbon Dioxide Anion Gap BUN Creatinine Est GFR ( Amer) Est GFR (Non-Af Amer) Random Glucose Calcium Total Bilirubin AST ALT Alkaline Phosphatase Total Protein Albumin Globulin Albumin/Globulin Ratio Lipase Urine Color Urine Clarity Urine pH Ur Specific [place] Urine Protein Urine Glucose (UA) Urine Ketones Urine Blood Urine Nitrate Urine Bilirubin Urine Urobilinogen Ur Leukocyte Esterase Urine RBC (Auto) Urine Microscopic WBC Ur Squamous Epith Cells Urine Opiates Screen Negative Urine Methadone Screen Negative Ur Barbiturates Screen Negative Ur Phencyclidine Scrn Negative Ur Amphetamines Screen Negative U Benzodiazepines Scrn Negative U Oth Cocaine Metabols Positive H U Cannabinoids Screen Positive H Alcohol, Quantitative Assessment & Plan - Assessment and Plan (Free Text) Assessment: This is a 40 year old male with past medical history of chronic pancreatits, history of pancreatic divisum s/p resection and polysubstance abuse, cholecystectomy is admitted for pancreatitis. On blood work, lipase is 2038. WBC count, blood glucose and LFTs are WNL. Lipid panel is WNL. UDS showed cannabinoids/cocaine. 1. Acute on Chronic Pancreatitis 2. Polysubstance abuse 3. Pancreas divisum 4. Hx of ETOH abuse Plan: -Continue IV hydration with LR at 150cc/hr, pt already received IVF NS 3L -Monitor BUN/HCT, no associated organ failure or local complications of pancreatitis at this time -Supportive care with pain medication and anti-emetics as needed -Clear liquid diet today -Continue pepcid -Can continue home pancreatic enzymes -Continue alcohol abstinence, illicit drug cessation counseling given to pt -Will continue to follow pt closely <Simón Townsend - Last Filed: 12/10/16 16:31> Results - Vital Signs Recent Vital Signs: Last Vital Signs Temp 98 F 12/10/16 08:13 Pulse 66 12/10/16 08:13 Resp 20 12/10/16 08:13 BP 114/74 12/10/16 08:13 Pulse Ox 99 12/10/16 08:13 - Labs Result Diagrams: 12/10/16 05:35 12/10/16 05:35 Labs: Laboratory Results - last 24 hr 12/10/16 12/10/16 05:35 05:35 WBC 9.1 RBC 4.61 Hgb 13.9 D Hct 42.1 MCV 91.4 MCH 30.2 MCHC 33.0 RDW 15.3 H Plt Count 212 MPV 7.7 Neut % (Auto) 57.6 Lymph % (Auto) 29.5 [place] % (Auto) 8.3 Eos % (Auto) 4.0 Baso % (Auto) 0.6 Neut # 5.3 Lymph # 2.7 [place] # 0.8 Eos # 0.4 Baso # 0.1 Sodium 141 Potassium 4.0 Chloride 109 H Carbon Dioxide 23 Anion Gap 13 BUN 11 Creatinine 0.9 Est GFR ( Amer) > 60 Est GFR (Non-Af Amer) > 60 Random Glucose 80 Calcium 8.7 Total Bilirubin 0.8 AST 45 ALT 82 H Alkaline Phosphatase 72 Total Protein 5.9 L Albumin 3.1 L D Globulin 2.8 Albumin/Globulin Ratio 1.1 Lipase 294 Attending/Attestation - Attestation I have personally seen and examined this patient.: Yes I have fully participated in the care of the patient.: Yes I have reviewed all pertinent clinical information: Yes Notes (Text): 12/10/16 16:30 40 year old male with h/o substance abuse admitted with recurrent pancreatitis. 1. Pancreatitis 2. Pancreas divisum Plan: -recommend supportive measurse with pain control and hydration -suspect ongoing substance abuse as a contributing factor to his presentation -no indication for GI intervention -ok to discharge when tolerated PO
[2016-12-09] MEDS: Lactated Ringer's 1,000 ML IV SCH (15:16)
[2016-12-09] MEDS ORDERED: Pneumococcal 23-Valent Vaccine IM ONE (21:00)
[2016-12-10] MEDS: Lactated Ringer's 1,000 ML IV SCH (02:20)
[2016-12-10 06:38] LABS: BASO # 0.1 K/uL (0.0-0.2); BASO % 0.6 % (0.0-2.0); EOS # 0.4 K/uL (0.0-0.7); HEMATOCRIT 42.1 % (35.0-51.0); LYMPH # 2.7 K/uL (1.0-4.3); LYMPH % 29.5 % (20.0-40.0); MEAN CELL VOLUME 91.4 fl (80.0-94.0); MEAN CORPUSCULAR HEMOGLOBIN 30.2 pg (27.0-31.0); MEAN PLATELET VOLUME 7.7 fl (7.2-11.7); MONO # 0.8 K/uL (0.0-0.8); MONO % 8.3 % (0.0-10.0); NEUT # 5.3 K/uL (1.8-7.0); NEUT % 57.6 % (50.0-75.0); NRBC % 0.1 % (0.0-0.0); RED CELL DISTRIBUTION WIDTH 15.3 % (11.5-14.5); WHITE BLOOD COUNT 9.1 K/uL (4.8-10.8)
[2016-12-10 06:42] LABS: ALB/GLOB RATIO 1.1 (1.0-2.1); ALKALINE PHOSPHATASE 72 U/L (38-126); ALT/SGPT 82 U/L (21-72); AST/SGOT 45 U/L (17-59); BILIRUBIN,TOTAL 0.8 mg/dl (0.2-1.3); BLOOD UREA NITROGEN 11 mg/dl (9-20); CALCIUM 8.7 mg/dL (8.4-10.2); CARBON DIOXIDE 23 mmol/L (22-30); CHLORIDE 109 mmol/L (98-107); GFR AFRICAN-AMERICAN > 60; GLUCOSE,RANDOM 80 mg/dL (75-110); LIPASE 294 U/L (23-300); SODIUM 141 mmol/l (132-148); TOTAL PROTEIN 5.9 G/DL (6.3-8.2)
--- NOTE | 2016-12-10 07:17 | CP.PCM.HP ---
History of Present Illness - History of Present Illness History of Present Illness: pt admitted for acute on chronic pancreatitis. pt is well known to this provider. uds and bw noted. pain better at present. no f/c, n/v/d. lipase wnl. case d/c w/ dr bartlett-gi Present on Admission - Present on Admission Any Indicators Present on Admission: No Review of Systems - Gastrointestinal Gastrointestinal: As Per HPI, Abdominal Pain, Nausea Past Patient History - Infectious Disease Hx of Infectious Diseases: None - Tetanus Immunizations Tetanus Immunization: Unknown - Past Medical History & Family History Past Medical History?: Yes - Past Social History Smoking Status: Current Some Days Smoker - CARDIAC Hx Congestive Heart Failure: No Hx Hypercholesterolemia: No Hx Hypertension: No Hx Pacemaker: No - PULMONARY Hx Asthma: Yes Hx Chronic Obstructive Pulmonary Disease (COPD): No - NEUROLOGICAL Hx Seizures: No - HEENT Hx HEENT Problems: No - RENAL Hx Chronic Kidney Disease: No - ENDOCRINE/METABOLIC Hx Hypothyroidism: No - HEMATOLOGICAL/ONCOLOGICAL Hx Human Immunodeficiency Virus (HIV): No - INTEGUMENTARY Hx Dermatological Problems: No - MUSCULOSKELETAL/RHEUMATOLOGICAL Hx Arthritis: Yes Hx Fractures: No Hx Rheumatoid Arthritis: Yes - GASTROINTESTINAL Hx Gall Bladder Disease: Yes (removed GB) Hx Pancreatitis: Yes - GENITOURINARY/GYNECOLOGICAL Hx Sexually Transmitted Disorders: No - PSYCHIATRIC Hx Depression: Yes - SURGICAL HISTORY Hx Cholecystectomy: Yes (2004) - ANESTHESIA Hx Anesthesia: Yes Hx Anesthesia Reactions: No Hx Malignant Hyperthermia: No Meds Home Medications: Home Medication List Medication Instructions Recorded Confirmed Type Ketorolac Tromethamine [Toradol] 10 mg PO Q6 PRN #10 tab 12/10/16 Rx Allergies/Adverse Reactions: Allergies Allergy/AdvReac Type Severity Reaction Status Date / Time No Known Allergies Allergy Verified 12/09/16 10:59 Physical Exam - Constitutional Appears: Well, Non-toxic, No Acute Distress - Head Exam Head Exam: ATRAUMATIC, NORMAL INSPECTION, NORMOCEPHALIC - Eye Exam Eye Exam: EOMI, Normal appearance, PERRL Pupil Exam: NORMAL ACCOMODATION, PERRL - ENT Exam ENT Exam: Mucous Membranes Moist, Normal Exam - Neck Exam Neck exam: Positive for: Normal Inspection - Respiratory Exam Respiratory Exam: Clear to Auscultation Bilateral, NORMAL BREATHING PATTERN - Cardiovascular Exam Cardiovascular Exam: REGULAR RHYTHM, RRR - GI/Abdominal Exam GI & Abdominal Exam: Normal Bowel Sounds, Soft. absent: Tenderness - Extremities Exam Extremities exam: Positive for: full ROM, normal capillary refill, normal inspection, pedal pulses present - Back Exam Back exam: NORMAL INSPECTION - Neurological Exam Neurological exam: Alert, CN II-XII Intact, Normal Gait, Oriented x3, Reflexes Normal - Psychiatric Exam Psychiatric exam: Normal Affect, Normal Mood - Skin Skin Exam: Dry, Intact, Normal Color, Warm Results - Vital Signs Recent Vital Signs: Last Vital Signs Temp 97.8 F 12/10/16 00:09 Pulse 56 L 12/10/16 00:09 Resp 19 12/10/16 00:09 BP 106/67 12/10/16 00:09 Pulse Ox 96 12/10/16 00:09 - Labs Result Diagrams: 12/10/16 05:35 12/10/16 05:35 Labs: Laboratory Results - last 24 hr 12/09/16 12/09/16 12/09/16 11:08 11:08 12:44 WBC 7.5 RBC 5.29 Hgb 16.0 Hct 47.8 MCV 90.3 MCH 30.2 MCHC 33.5 RDW 15.0 H Plt Count 262 MPV 7.9 Neut % (Auto) 64.5 Lymph % (Auto) 24.0 [place] % (Auto) 6.1 Eos % (Auto) 4.6 H Baso % (Auto) 0.8 Neut # 4.9 Lymph # 1.8 [place] # 0.5 Eos # 0.3 Baso # 0.1 Sodium 143 Potassium 4.3 Chloride 108 H Carbon Dioxide 23 Anion Gap 16 BUN 14 Creatinine 1.0 Est GFR ( Amer) > 60 Est GFR (Non-Af Amer) > 60 Random Glucose 97 Calcium 9.6 Total Bilirubin 0.3 AST 47 ALT 85 H D Alkaline Phosphatase 81 Total Protein 7.2 Albumin 4.0 Globulin 3.2 Albumin/Globulin Ratio 1.3 Lipase 2038 H Urine Color Yellow Urine Clarity Clear Urine pH 7.0 Ur Specific [place] 1.014 Urine Protein Negative Urine Glucose (UA) Neg Urine Ketones Negative Urine Blood Negative Urine Nitrate Negative Urine Bilirubin Negative Urine Urobilinogen 0.2-1.0 Ur Leukocyte Esterase Neg Urine RBC (Auto) 3 Urine Microscopic WBC < 1 Ur Squamous Epith Cells < 1 Urine Opiates Screen Urine Methadone Screen Ur Barbiturates Screen Ur Phencyclidine Scrn Ur Amphetamines Screen U Benzodiazepines Scrn U Oth Cocaine Metabols U Cannabinoids Screen Alcohol, Quantitative < 10 12/09/16 12/10/16 12/10/16 12:44 05:35 05:35 WBC 9.1 RBC 4.61 Hgb 13.9 D Hct 42.1 MCV 91.4 MCH 30.2 MCHC 33.0 RDW 15.3 H Plt Count 212 MPV 7.7 Neut % (Auto) 57.6 Lymph % (Auto) 29.5 [place] % (Auto) 8.3 Eos % (Auto) 4.0 Baso % (Auto) 0.6 Neut # 5.3 Lymph # 2.7 [place] # 0.8 Eos # 0.4 Baso # 0.1 Sodium 141 Potassium 4.0 Chloride 109 H Carbon Dioxide 23 Anion Gap 13 BUN 11 Creatinine 0.9 Est GFR ( Amer) > 60 Est GFR (Non-Af Amer) > 60 Random Glucose 80 Calcium 8.7 Total Bilirubin 0.8 AST 45 ALT 82 H Alkaline Phosphatase 72 Total Protein 5.9 L Albumin 3.1 L D Globulin 2.8 Albumin/Globulin Ratio 1.1 Lipase 294 Urine Color Urine Clarity Urine pH Ur Specific [place] Urine Protein Urine Glucose (UA) Urine Ketones Urine Blood Urine Nitrate Urine Bilirubin Urine Urobilinogen Ur Leukocyte Esterase Urine RBC (Auto) Urine Microscopic WBC Ur Squamous Epith Cells Urine Opiates Screen Negative Urine Methadone Screen Negative Ur Barbiturates Screen Negative Ur Phencyclidine Scrn Negative Ur Amphetamines Screen Negative U Benzodiazepines Scrn Negative U Oth Cocaine Metabols Positive H U Cannabinoids Screen Positive H Alcohol, Quantitative Assessment & Plan (1) DVT prophylaxis Assessment and Plan: scd and aehose ambulation Status: Acute (2) Pancreatitis Assessment and Plan: pain control w/ nonnarcotic as pt has violated verbal inpatient and written outpt pain contract gi adv diet to bland dc if marvin Status: Chronic Decision To Admit - Pt Status Changed To: Hospital Disposition Of: Observation - . Bed Request Type: Med/Surg Admitting Physician: Jessica Randhawa
[2016-12-10 08:13] VITALS: BP 114/74; PULSE 66; RESP 20; TEMP 98; O2SAT 99
--- NOTE | 2016-12-10 11:19 | CP.PCM.DIS ---
Provider - Provider Date of Admission: 12/09/16 12:36 Attending physician: Jessica Randhawa MD Time Spent in preparation of Discharge (in minutes): 15 Diagnosis - Discharge Diagnosis (1) DVT prophylaxis Status: Acute (2) Pancreatitis Status: Chronic Hospital Course - Lab Results Lab Results: Most Recent Lab Values WBC 9.1 K/uL (4.8-10.8) 12/10/16 05:35 RBC 4.61 Mil/uL (4.40-5.90) 12/10/16 05:35 Hgb 13.9 g/dL (12.0-18.0) D 12/10/16 05:35 Hct 42.1 % (35.0-51.0) 12/10/16 05:35 MCV 91.4 fl (80.0-94.0) 12/10/16 05:35 MCH 30.2 pg (27.0-31.0) 12/10/16 05:35 MCHC 33.0 g/dL (33.0-37.0) 12/10/16 05:35 RDW 15.3 % (11.5-14.5) H 12/10/16 05:35 Plt Count 212 K/uL (130-400) 12/10/16 05:35 MPV 7.7 fl (7.2-11.7) 12/10/16 05:35 Neut % (Auto) 57.6 % (50.0-75.0) 12/10/16 05:35 Lymph % (Auto) 29.5 % (20.0-40.0) 12/10/16 05:35 [place] % (Auto) 8.3 % (0.0-10.0) 12/10/16 05:35 Eos % (Auto) 4.0 % (0.0-4.0) 12/10/16 05:35 Baso % (Auto) 0.6 % (0.0-2.0) 12/10/16 05:35 Neut # 5.3 K/uL (1.8-7.0) 12/10/16 05:35 Lymph # 2.7 K/uL (1.0-4.3) 12/10/16 05:35 [place] # 0.8 K/uL (0.0-0.8) 12/10/16 05:35 Eos # 0.4 K/uL (0.0-0.7) 12/10/16 05:35 Baso # 0.1 K/uL (0.0-0.2) 12/10/16 05:35 Sodium 141 mmol/l (132-148) 12/10/16 05:35 Potassium 4.0 MMOL/L (3.6-5.0) 12/10/16 05:35 Chloride 109 mmol/L (98-107) H 12/10/16 05:35 Carbon Dioxide 23 mmol/L (22-30) 12/10/16 05:35 Anion Gap 13 (10-20) 12/10/16 05:35 BUN 11 mg/dl (9-20) 12/10/16 05:35 Creatinine 0.9 mg/dL (0.8-1.5) 12/10/16 05:35 Est GFR ( Amer) > 60 12/10/16 05:35 Est GFR (Non-Af Amer) > 60 12/10/16 05:35 Random Glucose 80 mg/dL (75-110) 12/10/16 05:35 Calcium 8.7 mg/dL (8.4-10.2) 12/10/16 05:35 Total Bilirubin 0.8 mg/dl (0.2-1.3) 12/10/16 05:35 AST 45 U/L (17-59) 12/10/16 05:35 ALT 82 U/L (21-72) H 12/10/16 05:35 Alkaline Phosphatase 72 U/L (38-126) 12/10/16 05:35 Total Protein 5.9 G/DL (6.3-8.2) L 12/10/16 05:35 Albumin 3.1 g/dL (3.5-5.0) L D 12/10/16 05:35 Globulin 2.8 gm/dL (2.2-3.9) 12/10/16 05:35 Albumin/Globulin Ratio 1.1 (1.0-2.1) 12/10/16 05:35 Lipase 294 U/L (23-300) 12/10/16 05:35 Urine Color Yellow (YELLOW) 12/09/16 12:44 Urine Clarity Clear (Clear) 12/09/16 12:44 Urine pH 7.0 (5.0-8.0) 12/09/16 12:44 Ur Specific [place] 1.014 (1.003-1.030) 12/09/16 12:44 Urine Protein Negative mg/dL (NEGATIVE) 12/09/16 12:44 Urine Glucose (UA) Neg mg/dL (Normal) 12/09/16 12:44 Urine Ketones Negative mg/dL (NEGATIVE) 12/09/16 12:44 Urine Blood Negative (NEGATIVE) 12/09/16 12:44 Urine Nitrate Negative (NEGATIVE) 12/09/16 12:44 Urine Bilirubin Negative (NEGATIVE) 12/09/16 12:44 Urine Urobilinogen 0.2-1.0 mg/dL (0.2-1.0) 12/09/16 12:44 Ur Leukocyte Esterase Neg [place]/uL (Negative) 12/09/16 12:44 Urine RBC (Auto) 3 /hpf (0-3) 12/09/16 12:44 Urine Microscopic WBC < 1 /hpf (0-5) 12/09/16 12:44 Ur Squamous Epith Cells < 1 /hpf (0-5) 12/09/16 12:44 Urine Opiates Screen Negative (NEGATIVE) 12/09/16 12:44 Urine Methadone Screen Negative (NEGATIVE) 12/09/16 12:44 Ur Barbiturates Screen Negative (NEGATIVE) 12/09/16 12:44 Ur Phencyclidine Scrn Negative (NEGATIVE) 12/09/16 12:44 Ur Amphetamines Screen Negative (NEGATIVE) 12/09/16 12:44 U Benzodiazepines Scrn Negative (NEGATIVE) 12/09/16 12:44 U Oth Cocaine Metabols Positive (NEGATIVE) H 12/09/16 12:44 U Cannabinoids Screen Positive (NEGATIVE) H 12/09/16 12:44 Alcohol, Quantitative < 10 mg/dl (0-10) 12/09/16 11:08 Discharge Exam - Head Exam Head Exam: ATRAUMATIC, NORMAL INSPECTION, NORMOCEPHALIC Discharge Plan - Discharge Medications Prescriptions: Ketorolac Tromethamine [Toradol] 10 mg PO Q6 PRN #10 tab PRN Reason: pain 6-10 - Follow Up Plan Condition: STABLE Disposition: HOME/ ROUTINE Instructions: Pancreatitis (DC) Additional Instructions: follow up with dr Randhawa in 2 days and GI doctor marvin po. pain controlled interaction of meds noted and will monitor closely. f/u rmg 2 days, rted prn. final dx-acute on chronic pancreatitis. cocaine dependency Referrals: Jessica Randhawa MD [Staff Provider] - Simón Townsend MD [Medical Doctor] - Thai Meneses, JOSELIN, [employer] [Advanced Practice Nurse] -
== END 2016-12-10 11:30 | disposition home or self-care (01) ==
LOC: H.ER 10:31 → H.ERHOLD 12:36 → H.MEDSURG1 15:48
PROVIDERS: ADMIT Family Medicine; ATTEND Family Medicine
DX: K86.1 Other chronic pancreatitis (principal); F14.20 Cocaine dependence, uncomplicated; F12.10 Cannabis abuse, uncomplicated; J45.909 Unspecified asthma, uncomplicated; M06.9 Rheumatoid arthritis, unspecified; F17.210 Nicotine dependence, cigarettes, uncomplicated; Q45.3 Other congenital malformations of pancreas and pancreatic duct; Z23 Encounter for immunization
CPT/HCPCS: 36415; 80053; 80320; 80324; 80345; 80346; 80349; 80353; 80358; 80361; 81003; 83690; 83992; 85025; 90471; 90732; 96361; 96374; 96375; 96376; 99284; G0378; J1885; J2270; J2405; J7040; J7120

== ENCOUNTER 2017-05-16 15:42 | Observation (INO) | payer MEDICAID ==
[2017-05-16 15:42] VITALS: BMI 28.1
[2017-05-16] MEDS ORDERED: Sodium Chloride 0.9% 1,000 ML IV STA (16:02)
--- NOTE | 2017-05-16 16:27 | ED PDOC ---
HPI: Abdomen Time Seen by Provider: 05/16/17 16:00 Chief Complaint (Nursing): Abdominal Pain Chief Complaint (Provider): Abdominal pain History Per: Patient History/Exam Limitations: no limitations Onset/Duration Of Symptoms: Days (1) Outside of [place] travel?: No Current Symptoms Are (Timing): Still Present Associated Symptoms: Nausea, Vomiting Additional Complaint(s): 41yo male, with history of pancreatitis, presents to ED with complaints of abdominal pain since yesterday with associated nausea and vomiting. Patient states he took Toradol for pain after which he noted "itchy bumps." He denies any fever, constipation, diarrhea, or symptoms. He has no other complaints. Past Medical History Reviewed: Historical Data, Nursing Documentation, Vital Signs Vital Signs: Last Vital Signs Temp 97.7 F 05/17/17 08:02 Pulse 71 05/17/17 00:22 Resp 18 05/17/17 08:02 BP 97/63 L 05/17/17 08:02 Pulse Ox 97 05/17/17 08:02 - Medical History PMH: Anxiety, Arthritis, Asthma, Back Problems (spinal stenosis), Depression, Gall Bladder Disease (removed GB), Pancreatitis, Rheumatoid Arthritis Denies: CHF, Colonic Polyps, COPD, Diabetes, Fractures, Hepatitis, HIV, HTN, Hypercholesterolemia, Hypothyroidism, Chronic Kidney Disease, Seizures, Sexually Transmitted Disease - Surgical History Surgical History: Cholecystectomy (2004), Endoscopy Denies: Pacemaker - Family History Family History: States: Unknown Family Hx - Immunization History Hx Tetanus Toxoid Vaccination: No Hx Influenza Vaccination: Yes Hx Pneumococcal Vaccination: Yes - Home Medications Home Medications: Ambulatory Orders Medication Instructions Recorded Albuterol HFA [Ventolin HFA 90 2 puff INH Q6 PRN 11/17/16 mcg/actuation (8 g)] Folic Acid 1 mg PO DAILY #30 tab 11/20/16 Sertraline [Zoloft] 50 mg PO DAILY #30 tab 11/20/16 Risperidone [Risperdal] 1 mg PO BID 01/25/17 Amylase/Lipase/Protease [Pancrease 36,000 u PO AC ecc 01/27/17 [id number] U] - Allergies Allergies/Adverse Reactions: Allergies Allergy/AdvReac Type Severity Reaction Status Date / Time ketorolac Allergy URTICARIA Verified 05/04/17 22:15 Review of Systems ROS Statement: Except As Marked, All Systems Reviewed And Found Negative Constitutional: Negative for: Fever Gastrointestinal: Positive for: Abdominal Pain. Negative for: Diarrhea, Constipation Genitourinary Male: Negative for: Dysuria, Hematuria Physical Exam - Reviewed Nursing Documentation Reviewed: Yes Vital Signs Reviewed: Yes - Physical Exam Appears: Positive for: Non-toxic, No Acute Distress (comfortable, playing on phone) Head Exam: Positive for: ATRAUMATIC, NORMAL INSPECTION, NORMOCEPHALIC Skin: Positive for: Normal Color Eye Exam: Positive for: Normal appearance Neck: Positive for: Supple Cardiovascular/Chest: Positive for: Regular Rate, Rhythm Respiratory: Positive for: Normal Breath Sounds. Negative for: Respiratory Distress Gastrointestinal/Abdominal: Positive for: Soft, Tenderness (right upper quadrant , epigastric). Negative for: Guarding, Rebound Neurologic/Psych: Positive for: Alert, Oriented - Laboratory Results Result Diagrams: 05/17/17 05:30 05/17/17 05:30 - ECG O2 Sat by Pulse Oximetry: 99 (RA) Pulse Ox Interpretation: Normal - Progress Re-evaluation Time: 18:00 Condition: Improving,but remains with symptoms - Physician Consult Information Time Consulting Physican Contacted: 17:27 Physician Contacted: Thai Meneses Outcome Of Conversation: Case discussed with Thai Meneses. Medical Decision Making Medical Decision Making: Impression: gastritis, pancreatitis Plan: -- Labs -- Morphine 2mg IV -- Zofran 4mg IV -- IV Fluids Scribe Attestation: Documented by Anette Guerrero acting as a scribe for Lisset Esquivel MD. Provider Attestation: All medical record entries made by the Scribe were at my direction and personally dictated by me. I have reviewed the chart and agree that the record accurately reflects my personal performance of the history, physical exam, medical decision making, and the department course for this patient. I have also personally directed, reviewed, and agree with the discharge instructions and disposition. Disposition - Clinical Impression Clinical Impression: Acute pancreatitis, Acute on chronic pancreatitis - Patient ED Disposition Is Patient to be Admitted: Yes - Disposition Disposition Time: 17:44 Condition: STABLE - Pt Status Changed To: Hospital Disposition Of: Observation - POA Present On Arrival: None
[2017-05-16 16:53] LABS: BASO % 0.6 % (0.0-2.0); EOS # 0.3 K/uL (0.0-0.7); EOS % 4.7 % (0.0-4.0); HEMOGLOBIN 15.8 g/dL (12.0-18.0); LYMPH # 1.9 K/uL (1.0-4.3); LYMPH % 26.5 % (20.0-40.0); MEAN CELL VOLUME 90.6 fl (80.0-94.0); MEAN CORPUSCULAR HEMOGLOBIN 30.4 pg (27.0-31.0); MEAN CORPUSCULAR HGB CONC 33.6 g/dL (33.0-37.0); MEAN PLATELET VOLUME 7.6 fl (7.2-11.7); MONO # 0.5 K/uL (0.0-0.8); MONO % 7.4 % (0.0-10.0); NEUT # 4.5 K/uL (1.8-7.0); NEUT % 60.8 % (50.0-75.0); NRBC % 0.1 % (0.0-0.0); RBC 5.19 Mil/uL (4.40-5.90); RED CELL DISTRIBUTION WIDTH 14.3 % (11.5-14.5); WHITE BLOOD COUNT 7.3 K/uL (4.8-10.8)
[2017-05-16 16:57] LABS: URINE BILIRUBIN NEGATIVE (NEGATIVE); URINE BLOOD NEGATIVE (NEGATIVE); URINE CLARITY CLEAR (Clear); URINE COLOR YELLOW (YELLOW); URINE GLUCOSE (UA) NEG (Normal); URINE HYALINE CAST 0-2 /hpf (0-2); URINE LEUKOCYTE ESTERASE NEG Leu/uL (Negative); URINE PROTEIN NEGATIVE (NEGATIVE); URINE UROBILINOGEN 0.2-1.0 mg/dL (0.2-1.0)
[2017-05-16 17:07] LABS: ALB/GLOB RATIO 1.1 (1.0-2.1); ALBUMIN 3.6 g/dL (3.5-5.0); ALT/SGPT 25 U/L (21-72); AST/SGOT 29 U/L (17-59); BLOOD UREA NITROGEN 16 mg/dl (9-20); CALCIUM 9.6 mg/dL (8.4-10.2); GFR AFRICAN-AMERICAN > 60; GFR NON-AFRICAN AMERICAN > 60; LIPASE 630 U/L (23-300)
[2017-05-16 17:21] LABS: BARBITURATES, UR NEGATIVE (NEGATIVE); BENZODIAZEPINES, UR NEGATIVE (NEGATIVE); OPIATES, UR NEGATIVE (NEGATIVE); PHENCYCLIDINE, UR NEGATIVE (NEGATIVE)
[2017-05-16] MEDS ORDERED: Albuterol HFA 90 mcg/actuation (8 g) INH PRN (18:15)
[2017-05-16 18:26] LABS: INR 0.9 (0.9-1.2); PARTIAL THROMBOPLASTIN TIME 27.7 Seconds (25.6-37.1); PROTHROMBIN TIME 10.4 Seconds (9.8-13.1)
[2017-05-16] MEDS: Lactated Ringer's 1,000 ML IV SCH ×2 (19:07→21:59)
[2017-05-17 00:22] VITALS: PULSE 71
[2017-05-17] MEDS: Lactated Ringer's 1,000 ML IV SCH (01:10)
[2017-05-17 07:12] LABS: BASO % 0.6 % (0.0-2.0); EOS # 0.5 K/uL (0.0-0.7); EOS % 5.8 % (0.0-4.0); HEMOGLOBIN 14.6 g/dL (12.0-18.0); LYMPH # 3.8 K/uL (1.0-4.3); LYMPH % 47.9 % (20.0-40.0); MEAN CELL VOLUME 90.8 fl (80.0-94.0); MEAN CORPUSCULAR HEMOGLOBIN 30.6 pg (27.0-31.0); MEAN CORPUSCULAR HGB CONC 33.7 g/dL (33.0-37.0); MEAN PLATELET VOLUME 7.7 fl (7.2-11.7); MONO # 0.4 K/uL (0.0-0.8); MONO % 5.7 % (0.0-10.0); NEUT # 3.2 K/uL (1.8-7.0); NRBC % 0.1 % (0.0-0.0); RBC 4.77 Mil/uL (4.40-5.90); RED CELL DISTRIBUTION WIDTH 14.2 % (11.5-14.5); WHITE BLOOD COUNT 7.9 K/uL (4.8-10.8)
[2017-05-17] MEDS ORDERED: Amylase/Lipase/Protease 5,000 Units ECC PO SCH (07:30)
--- NOTE | 2017-05-17 07:33 | CP.PCM.HP ---
History of Present Illness - History of Present Illness History of Present Illness: pt admitted for pancreatitis. well known to this provider. c/o abd pain and nausea which is chronic. no f/c, n/v/d. labs noted. lipase now normal. po tolerant. pt has h/o cocaine/marijuana abuse and has violated pain contracts w/ this provider in the past. Present on Admission - Present on Admission Any Indicators Present on Admission: No Review of Systems - Gastrointestinal Gastrointestinal: As Per HPI, Abdominal Pain, Nausea Past Patient History - Infectious Disease Hx of Infectious Diseases: None - Tetanus Immunizations Tetanus Immunization: Unknown - Past Medical History & Family History Past Medical History?: Yes - Past Social History Smoking Status: Former Smoker - CARDIAC Hx Cardiac Disorders: No Hx Congestive Heart Failure: No Hx Hypercholesterolemia: No Hx Hypertension: No Hx Pacemaker: No - PULMONARY Hx Respiratory Disorders: Yes Hx Asthma: Yes Hx Chronic Obstructive Pulmonary Disease (COPD): No - NEUROLOGICAL Hx Neurological Disorder: No Hx Seizures: No - HEENT Hx HEENT Problems: No - RENAL Hx Chronic Kidney Disease: No - ENDOCRINE/METABOLIC Hx Endocrine Disorders: No Hx Hypothyroidism: No - HEMATOLOGICAL/ONCOLOGICAL Hx Blood Disorders: No Hx Human Immunodeficiency Virus (HIV): No - INTEGUMENTARY Hx Dermatological Problems: No - MUSCULOSKELETAL/RHEUMATOLOGICAL Hx Musculoskeletal Disorders: Yes Hx Arthritis: Yes Hx Falls: Yes Hx Fractures: No Hx Rheumatoid Arthritis: Yes - GASTROINTESTINAL Hx Gastrointestinal Disorders: Yes Hx Gall Bladder Disease: Yes (removed GB) Hx Pancreatitis: Yes - GENITOURINARY/GYNECOLOGICAL Hx Genitourinary Disorders: No Hx Sexually Transmitted Disorders: No - PSYCHIATRIC Hx Psychophysiologic Disorder: Yes Hx Anxiety: Yes Hx Depression: Yes - SURGICAL HISTORY Hx Surgeries: Yes Hx Cholecystectomy: Yes (2004) - ANESTHESIA Hx Anesthesia: Yes Hx Anesthesia Reactions: No Hx Malignant Hyperthermia: No Meds Allergies/Adverse Reactions: Allergies Allergy/AdvReac Type Severity Reaction Status Date / Time ketorolac Allergy URTICARIA Verified 05/04/17 22:15 Physical Exam - Constitutional Appears: Well, Non-toxic, No Acute Distress - Head Exam Head Exam: ATRAUMATIC, NORMAL INSPECTION, NORMOCEPHALIC - Eye Exam Eye Exam: EOMI, Normal appearance, PERRL Pupil Exam: NORMAL ACCOMODATION, PERRL - ENT Exam ENT Exam: Mucous Membranes Moist, Normal Exam - Neck Exam Neck exam: Positive for: Normal Inspection - Respiratory Exam Respiratory Exam: Clear to Auscultation Bilateral, NORMAL BREATHING PATTERN - Cardiovascular Exam Cardiovascular Exam: REGULAR RHYTHM, RRR, +S1, +S2 - GI/Abdominal Exam GI & Abdominal Exam: Normal Bowel Sounds, Soft. absent: Tenderness - Extremities Exam Extremities exam: Positive for: normal inspection - Back Exam Back exam: NORMAL INSPECTION - Neurological Exam Neurological exam: Alert, CN II-XII Intact, Normal Gait, Oriented x3, Reflexes Normal - Psychiatric Exam Psychiatric exam: Normal Affect, Normal Mood - Skin Skin Exam: Dry, Intact, Normal Color, Warm Results - Vital Signs Recent Vital Signs: Last Vital Signs Temp 98 F 05/17/17 00:22 Pulse 71 05/17/17 00:22 Resp 19 05/17/17 00:22 BP 106/68 05/17/17 00:22 Pulse Ox 96 05/17/17 00:22 - Labs Result Diagrams: 05/17/17 05:30 05/17/17 05:30 Labs: Laboratory Results - last 24 hr 05/16/17 05/16/17 05/16/17 16:30 16:30 16:30 WBC 7.3 RBC 5.19 Hgb 15.8 Hct 47.0 MCV 90.6 MCH 30.4 MCHC 33.6 RDW 14.3 Plt Count 273 MPV 7.6 Neut % (Auto) 60.8 Lymph % (Auto) 26.5 [place] % (Auto) 7.4 Eos % (Auto) 4.7 H Baso % (Auto) 0.6 Neut # (Auto) 4.5 Lymph # (Auto) 1.9 [place] # (Auto) 0.5 Eos # (Auto) 0.3 Baso # (Auto) 0.0 PT 10.4 INR 0.9 APTT 27.7 Sodium 145 Potassium 4.4 Chloride 104 Carbon Dioxide 26 Anion Gap 19 BUN 16 Creatinine 1.0 Est GFR ( Amer) > 60 Est GFR (Non-Af Amer) > 60 Random Glucose 82 Calcium 9.6 Total Bilirubin 0.3 AST 29 ALT 25 Alkaline Phosphatase 66 Total Protein 7.0 Albumin 3.6 Globulin 3.4 Albumin/Globulin Ratio 1.1 Lipase 630 H Urine Color Urine Clarity Urine pH Ur Specific [place] Urine Protein Urine Glucose (UA) Urine Ketones Urine Blood Urine Nitrate Urine Bilirubin Urine Urobilinogen Ur Leukocyte Esterase Urine RBC (Auto) Urine Microscopic WBC Hyaline Casts Urine Opiates Screen Urine Methadone Screen Ur Barbiturates Screen Ur Phencyclidine Scrn Ur Amphetamines Screen U Benzodiazepines Scrn U Oth Cocaine Metabols U Cannabinoids Screen Alcohol, Quantitative < 10 05/16/17 05/16/17 05/17/17 16:30 16:30 05:30 WBC 7.9 RBC 4.77 Hgb 14.6 Hct 43.3 MCV 90.8 MCH 30.6 MCHC 33.7 RDW 14.2 Plt Count 255 MPV 7.7 Neut % (Auto) 40.0 L Lymph % (Auto) 47.9 H [place] % (Auto) 5.7 Eos % (Auto) 5.8 H Baso % (Auto) 0.6 Neut # (Auto) 3.2 Lymph # (Auto) 3.8 [place] # (Auto) 0.4 Eos # (Auto) 0.5 Baso # (Auto) 0.0 PT INR APTT Sodium Potassium Chloride Carbon Dioxide Anion Gap BUN Creatinine Est GFR ( Amer) Est GFR (Non-Af Amer) Random Glucose Calcium Total Bilirubin AST ALT Alkaline Phosphatase Total Protein Albumin Globulin Albumin/Globulin Ratio Lipase Urine Color Yellow Urine Clarity Clear Urine pH 6.0 Ur Specific [place] 1.017 Urine Protein Negative Urine Glucose (UA) Neg Urine Ketones Negative Urine Blood Negative Urine Nitrate Negative Urine Bilirubin Negative Urine Urobilinogen 0.2-1.0 Ur Leukocyte Esterase Neg Urine RBC (Auto) 1 Urine Microscopic WBC < 1 Hyaline Casts 0-2 Urine Opiates Screen Negative Urine Methadone Screen Negative Ur Barbiturates Screen Negative Ur Phencyclidine Scrn Negative Ur Amphetamines Screen Negative U Benzodiazepines Scrn Negative U Oth Cocaine Metabols Negative U Cannabinoids Screen Positive H Alcohol, Quantitative Assessment & Plan (1) Acute on chronic pancreatitis Assessment and Plan: ivf tylenol only as pt states has allergy to toradol and no narcotic will be given dc if marvin bland diet, tolerates liquids Status: Acute (2) DVT prophylaxis Assessment and Plan: scd and ae hsoe lovenox Status: Acute Decision To Admit - Pt Status Changed To: Hospital Disposition Of: Observation - . Bed Request Type: Med/Surg Admitting Physician: Jessica Randhawa
[2017-05-17 07:39] LABS: ALBUMIN 2.9 g/dL (3.5-5.0); ALT/SGPT 22 U/L (21-72); AST/SGOT 16 U/L (17-59); BLOOD UREA NITROGEN 12 mg/dl (9-20); CALCIUM 8.8 mg/dL (8.4-10.2); GFR AFRICAN-AMERICAN > 60; GFR NON-AFRICAN AMERICAN > 60; LIPASE 276 U/L (23-300)
[2017-05-17 08:03] VITALS: BP 97/63; RESP 18; TEMP 97.7
--- NOTE | 2017-05-17 09:12 | CARD ---
APPROVED REPORT EKG Measurement Heart [id number] <Conclusion> Normal sinus rhythm ST elevation, probably due to early repolarization Borderline ECG
[2017-05-18 15:39] VITALS: O2SAT 99
== END 2017-05-17 15:35 | disposition home or self-care (01) ==
LOC: H.ER 15:42 → H.ERHOLD 18:19 → H.MEDSURG1 20:27
PROVIDERS: ADMIT Family Medicine; ATTEND Family Medicine
DX: K85.90 Acute pancreatitis without necrosis or infection, unspecified (principal); K86.1 Other chronic pancreatitis; M06.9 Rheumatoid arthritis, unspecified; Z87.891 Personal history of nicotine dependence; F12.10 Cannabis abuse, uncomplicated; F32.9 Major depressive disorder, single episode, unspecified; F41.9 Anxiety disorder, unspecified; F45.9 Somatoform disorder, unspecified; K82.9 Disease of gallbladder, unspecified; M19.90 Unspecified osteoarthritis, unspecified site; M48.00 Spinal stenosis, site unspecified; Z79.899 Other long term (current) drug therapy; J45.909 Unspecified asthma, uncomplicated; K29.70 Gastritis, unspecified, without bleeding
CPT/HCPCS: 36415; 80053; 80320; 80324; 80345; 80346; 80349; 80353; 80358; 80361; 81003; 83690; 83992; 85025; 85610; 85730; 93005; 99284; G0378; J2270; J2405; J7040; J7120

== ENCOUNTER 2017-06-17 16:13 | Inpatient (IN) | payer MEDICAID ==
--- NOTE | 2017-06-17 18:18 | ED PDOC ---
HPI: Psych/Substance Abuse Time Seen by Provider: 06/17/17 16:22 Chief Complaint (Nursing): Psychiatric Evaluation Chief Complaint (Provider): Suicidal ideation History Per: Patient History/Exam Limitations: no limitations Onset/Duration Of Symptoms: Hrs (today) Current Symptoms Are (Timing): Still Present Associated Symptoms: Suicidal Thoughts Involuntary Hold By: None Additional Complaint(s): Christofer Gonzalez is a 41 year old male, with a past medical history of depression, anxiety and asthma, who was brought to the emergency department for suicidal ideation onset today. Patient reports earlier today he was seen by a psychiatrist, Dr. Holt, who he told he was suicidal and had planned to overdose on cocaine. Patient states ambulance was called as soon as he informed them. Patient further states he was recently admitted to the hospital for pancreatitis. Patient reports he was informed by Dr. Carr that his CT scan did not show pancreatitis but his lipase levels were elevated which it was due to cocaine use. Patient still has abdominal pain but states it has improved drastically since he was discharged from the hospital 2 days ago. Patient has been taking percocet for the pain, he takes x4 5/325mg tab of percocet Q4H, first time was at 9am today, last dose was at 13:00. He denies any fever, chills , nausea, vomit, diarrhea, chest pain, shortness of breath, or hallucinations. No further medical complaints. PMD: Thai Meneses Past Medical History Reviewed: Historical Data, Nursing Documentation, Vital Signs Vital Signs: Last Vital Signs Temp 98.0 F 06/17/17 16:16 Pulse 63 06/17/17 16:16 Resp 16 06/17/17 16:16 BP 133/85 06/17/17 16:16 Pulse Ox 98 06/17/17 16:16 - Medical History PMH: Anxiety, Arthritis, Asthma, Back Problems (spinal stenosis), Depression, Gall Bladder Disease (removed GB), Pancreatitis, Rheumatoid Arthritis Denies: CHF, Colonic Polyps, COPD, Diabetes, Fractures, Hepatitis, HIV, HTN, Hypercholesterolemia, Hypothyroidism, Chronic Kidney Disease, Seizures, Sexually Transmitted Disease - Surgical History Surgical History: Cholecystectomy (2004), Endoscopy Denies: Pacemaker - Family History Family History: States: Unknown Family Hx - Immunization History Hx Tetanus Toxoid Vaccination: No Hx Influenza Vaccination: Yes (2017) Hx Pneumococcal Vaccination: Yes - Home Medications Home Medications: Ambulatory Orders Medication Instructions Recorded Albuterol HFA [Ventolin HFA 90 2 puff IH Q6 PRN 06/17/17 mcg/actuation (8 g)] Amylase/Lipase/Protease [Viokase 1 tab PO DAILY 06/17/17 79621 U-8000 U-01240 U] Folic Acid/Mv,Iron,Min [Ra One 1 mg PO DAILY 06/17/17 Daily Maximum Tablet] Risperidone [Risperdal] 1 mg PO BID 06/17/17 Sertraline [Zoloft] 50 mg PO DAILY 06/17/17 - Allergies Allergies/Adverse Reactions: Allergies Allergy/AdvReac Type Severity Reaction Status Date / Time ketorolac Allergy URTICARIA Verified 06/17/17 16:16 Review of Systems ROS Statement: Except As Marked, All Systems Reviewed And Found Negative Constitutional: Negative for: Fever, Chills Cardiovascular: Negative for: Chest Pain Respiratory: Negative for: Shortness of Breath Gastrointestinal: Negative for: Nausea, Vomiting, Diarrhea Psych: Positive for: Suicidal ideation. Negative for: Other (hallucinations) Physical Exam - Reviewed Nursing Documentation Reviewed: Yes Vital Signs Reviewed: Yes - Physical Exam Appears: Positive for: Non-toxic, No Acute Distress Head Exam: Positive for: ATRAUMATIC, NORMAL INSPECTION, NORMOCEPHALIC Skin: Positive for: Normal Color, Warm, Dry Eye Exam: Positive for: Normal appearance, EOMI, PERRL Neck: Positive for: Painless ROM, Supple Cardiovascular/Chest: Positive for: Regular Rate, Rhythm. Negative for: Murmur Respiratory: Positive for: Normal Breath Sounds. Negative for: Respiratory Distress Gastrointestinal/Abdominal: Positive for: Normal Exam, Soft. Negative for: Tenderness Extremity: Positive for: Normal ROM (upper and lower extremities). Negative for : Deformity, Swelling Neurologic/Psych: Positive for: Alert, Oriented - Laboratory Results Result Diagrams: 06/17/17 18:00 06/17/17 18:00 - ECG ECG Rhythm: Positive for: Sinus Bradycardia Interpretation Of ECG: No ST/T changes, no QRS prolongation. Rate: 57 O2 Sat by Pulse Oximetry: 98 (RA) Pulse Ox Interpretation: Normal - Radiology X-Ray: Interpreted by Me (CXR) X-Ray Interpretation: No Acute Disease Medical Decision Making Medical Decision Making: Initial Impression: Suicidal ideation Initial Plan: --EKG --Acetaminophen --Alcohol serum --CMP --Drug screen, urine ---Salicylate --Crisis evaluation as ordered --CBC w/ differential --1:1 Obs for suicide precaution --Urinalysis 17:55 -Case discussed with Krish from poison control who recommends supportive care and agrees with his current plan and care. Pt. evaluated by Anitra, putty worker, who spoke with Dr. Mariscal who requests that pt. be admitted. ~ Scribe Attestation: Documented by Adolfo Palomo, acting as a scribe for Aston Allen PA-C. Provider Scribe Attestation: All medical record entries made by the Scribe were at my direction and personally dictated by me. I have reviewed the chart and agree that the record accurately reflects my personal performance of the history, physical exam, medical decision making, and the department course for this patient. I have also personally directed, reviewed, and agree with the discharge instructions and disposition. Disposition - Clinical Impression Clinical Impression: Depression - Patient ED Disposition Is Patient to be Admitted: No - Disposition Disposition: Routine/Home Disposition Time: 22:24 Condition: STABLE
[2017-06-17 18:43] LABS: ACETAMINOPHEN < 10.0 ug/ml (10.0-30.0); SALICYLATE < 1.0 mg/dl
[2017-06-17 18:46] LABS: BASO # 0.1 K/uL (0.0-0.2); BASO % 0.8 % (0.0-2.0); EOS # 0.2 K/uL (0.0-0.7); EOS % 2.1 % (0.0-4.0); HEMOGLOBIN 16.1 g/dL (12.0-18.0); LYMPH # 1.8 K/uL (1.0-4.3); LYMPH % 20.4 % (20.0-40.0); MEAN CELL VOLUME 91.5 fl (80.0-94.0); MEAN CORPUSCULAR HEMOGLOBIN 30.6 pg (27.0-31.0); MEAN CORPUSCULAR HGB CONC 33.4 g/dL (33.0-37.0); MONO # 0.6 K/uL (0.0-0.8); MONO % 6.6 % (0.0-10.0); NEUT # 6.3 K/uL (1.8-7.0); NEUT % 70.1 % (50.0-75.0); NRBC % 0.1 % (0.0-0.0); RBC 5.25 Mil/uL (4.40-5.90); RED CELL DISTRIBUTION WIDTH 14.6 % (11.5-14.5)
[2017-06-17 19:18] LABS: ALB/GLOB RATIO 1.1 (1.0-2.1); ALBUMIN 4.3 g/dL (3.5-5.0); ALT/SGPT 34 U/L (21-72); AST/SGOT 43 U/L (17-59); BLOOD UREA NITROGEN 13 mg/dl (9-20); CALCIUM 9.7 mg/dL (8.4-10.2); GFR AFRICAN-AMERICAN > 60; GFR NON-AFRICAN AMERICAN > 60
[2017-06-17 21:22] LABS: URINE BILIRUBIN NEGATIVE (NEGATIVE); URINE BLOOD NEGATIVE (NEGATIVE); URINE CLARITY CLEAR (Clear); URINE COLOR YELLOW (YELLOW); URINE GLUCOSE (UA) NEG (Normal); URINE LEUKOCYTE ESTERASE NEG Leu/uL (Negative); URINE PROTEIN NEGATIVE (NEGATIVE); URINE UROBILINOGEN 0.2-1.0 mg/dL (0.2-1.0)
[2017-06-17 22:03] LABS: BARBITURATES, UR NEGATIVE (NEGATIVE); BENZODIAZEPINES, UR NEGATIVE (NEGATIVE); OPIATES, UR NEGATIVE (NEGATIVE); PHENCYCLIDINE, UR NEGATIVE (NEGATIVE)
[2017-06-18] MEDS ORDERED: DiphenhydrAMINE 50 mg/ml Inj IM PRN (00:46)
[2017-06-18] MEDS ORDERED: Magnesium Hydroxide Susp 30 ml UD PO PRN (00:46)
[2017-06-18] MEDS ORDERED: Alum-Mag Hydrox-Simethicone Susp (30 mL) PO PRN (00:46)
--- NOTE | 2017-06-18 01:52 | PCM.BM ---
<Hollis Yap J - Last Filed: 06/18/17 01:51> Treatment Plan Problems - Problems identified on initial assessmt Self Harm Date Initiated: 06/18/17 Time Initiated: 01:51 Assessment reference: NA Status: Active Treatment assets and liabiliti Patient Assests: adapts well, cooperative, negotiates basic needs, good past tx response, cognitively intact, good interpersonal skills Patient Liabilities: poor support system, relationship conflicts, substance abuse, medical problems - Milieu Protocol Maintain good personal hygiene: daily Remind patient to perform daily oral care , every other day Encourage regular showers Conduct patient checks and document Observation sheet: Q15 minutes Maintain personal safety: every shift Educate patient to report safety concerns to staff, every shift Monitor environment for contraband/sharps Medication safety: Monitor for expected outcome, potential side effects: every shift, Assess barriers to learning: every shift, Assess readiness for medication education: every shift <Ankur Dodson J - Last Filed: 06/19/17 17:05> Family Contact Family involvement: Family/SO is involved Family contact: Patient agrees to contact, Family has been contacted by patient Family contact name: Mercedes Gonzalez - Mother Family contacted how many times per week?: 2 Family contact comment: [phone] - Goals for Treatment Patient goals for treatment: Pt would like to be referred to rehab. Discharge/Continuing Care - Education Needs Education Needs: Patient Medication, Patient Diagnosis/Disease Process, Patient Coping Skills, Patient Community resources, Patient Personal Hygiene/Grooming, Patient Aftercare Safety Plan - Discharge Discharge Criteria: Tolerates medication w/o severe side effects, Free of Suicidal thoughts, Free of agitation, Normal sleep pattern, Ability to care for self, No longer exhibiting s/s of withdrawal, Reduction of target symptoms Discharge to:: Home, With Family, Substance Abuse Rehab - Treatment Team Participation Patient/Family/SO Statement: 06/19/17 17:07 Pt reported he is feeling "a little down." Pt reported that he feels a little sedated. Pt still reported that he hears voices, but reported they are getting fainter. Pt agreed to increase in Risperdal. Pt admitted that he has been using Cocaine, Marijuana and Percocet recently. Pt reported he was taking 8 tablets of Percocet daily. last use was 06/12. Discussed with Family/SO: No Was Patient/Family/SO present at Treatment Team Meeting: Yes <Nabor Patel - Last Filed: 06/25/17 09:59> - Diagnosis (1) Depression Status: Acute Interventions: 06/25/17 09:59 psychotherapy , pharmacotherapy
[2017-06-18 02:35] VITALS: O2SAT 100
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
--- NOTE | 2017-06-18 08:54 | CARD ---
APPROVED REPORT EKG Measurement Heart [id number] [place] [id number] <Conclusion> Sinus bradycardia ST elevation, probably due to early repolarization Borderline ECG
[2017-06-18] MEDS ORDERED: [UNRECOGNIZED DRUG - OTHER] PO SCH (09:00)
--- NOTE | 2017-06-18 09:12 | RAD ---
HISTORY: clearance COMPARISON: No prior. FINDINGS: LUNGS: No active pulmonary disease. PLEURA: No significant pleural effusion identified, no pneumothorax apparent. CARDIOVASCULAR: Normal. OSSEOUS STRUCTURES: No significant abnormalities. VISUALIZED UPPER ABDOMEN: Normal. OTHER FINDINGS: None. IMPRESSION: No active disease.
[2017-06-18 09:38] LABS: T4 6.45 ug/dl (5.5-11.0)
[2017-06-18] MEDS: Multivitamin With Minerals Tab PO SCH (10:05)
[2017-06-18] MEDS: Albuterol HFA 90 mcg/actuation (8 g) IH PRN ×2 (13:22→22:31)
[2017-06-18] MEDS: Amylase/Lipase/Protease 5,000 Units ECC PO SCH (17:47)
--- NOTE | 2017-06-18 18:19 | PCM.PSYCH ---
Initial Psychiatric Evaluation - Initial Psychiatric Evaluation Type of Admission: Voluntary Legal Status: Capacity Chief Complaint (in patient's own words): I can't see my children and I can,t live like that Patient's Reaction to Hospitalization: pt requested help History of Present Illness and Precipitating Events: pt is 41ys old male , previous diagnosis of schizoaffective disorder, cocaine use and cannabis use, pt on day of evaluation had an appointment with psychiatrist, reported to her that he has been severely depressed and experiencing auditory hallucinations, telling him to hurt himself and cut his wrist, pt was sent to ER for evaluation on the unit pt reported severe depression for past four years as his ex left him with his two children to a different state and he is unable to see the children, pt also unemployed with financial difficulties, pt reported low energy , anhedonia, increased sleep reported passive suicidal ideations, no current plan, continues to experience non command auditory hallucinations, pt has been using cocaine and cannabis Current Medications: Active Medications Generic Name Dose Route Start Last Admin Trade Name Freq PRN Reason Stop Dose Admin Acetaminophen 650 mg 06/18/17 00:46 06/18/17 11:10 Tylenol 325mg Tab PO 650 mg Q4 PRN Administration pain 4-7 Al Hydrox/Mg Hydrox/Simethicone 30 ml 06/18/17 00:46 Maalox Plus 30 Ml PO Q4 PRN Dyspepsia Albuterol 2 puff 06/18/17 07:44 06/18/17 13:22 Ventolin Hfa 90 Mcg/Actuation (8 G) IH 8 g Q6 PRN Administration sob Amylase 1 unit 06/18/17 09:00 06/18/17 17:47 Pancrease 38674 [id number] U PO 1 unit DAILY JAYNE Administration Diphenhydramine HCl 50 mg 06/18/17 00:46 Benadryl IM Q6 PRN Extrapyramidal S/S Unable PO Diphenhydramine HCl 50 mg 06/18/17 00:46 Benadryl PO Q6 PRN Extrapyramidal Symptoms Diphenhydramine HCl 50 mg 06/18/17 00:47 06/18/17 01:19 Benadryl PO 50 mg HS PRN Administration Sleep Famotidine 20 mg 06/18/17 09:00 06/18/17 17:48 Pepcid PO 20 mg BID JAYNE Administration Haloperidol 5 mg 06/18/17 00:46 Haldol PO Q4 PRN Agitation Haloperidol Lactate 5 mg 06/18/17 00:46 Haldol IM Q4 PRN Agitation, Unable to Take PO Lorazepam 2 mg 06/18/17 00:46 Ativan IM Q4 PRN Anxiety/Agitation,Unable PO Lorazepam 2 mg 06/18/17 00:46 Ativan PO Q4 PRN Anxiety/Agitation Magnesium Hydroxide 30 ml 06/18/17 00:46 Milk Of Magnesia PO HS PRN Constipation Multivitamins/Minerals 1 tab 06/18/17 09:00 06/18/17 10:05 Therapeutic-M Tab PO 1 tab DAILY JAYNE Administration Ondansetron HCl 4 mg 06/18/17 07:45 06/18/17 10:06 Zofran Odt PO 4 mg Q8H PRN Administration Nausea/Vomiting Risperidone 1 mg 06/18/17 13:17 06/18/17 14:21 Risperdal Tab PO 1 mg DAILY JAYNE Administration Risperidone 1 mg 06/18/17 22:00 Risperdal Tab PO HS JAYNE Trazodone HCl 50 mg 06/18/17 18:08 Desyrel PO HS PRN Insomnia Venlafaxine HCl 37.5 mg 06/19/17 09:00 Effexor PO DAILY JAYNE Past Psychiatric History - Past Psychiatric History Explanation of prior treatment: multiple inpatient hospitalizations, partial compliance History of ETOH/Drug Use: cocaine and cannabis use Pertinent Medical Hx (Current Medical&Sleep Prob, Allergies): Allergies Allergy/AdvReac Type Severity Reaction Status Date / Time ketorolac Allergy URTICARIA Verified 06/17/17 16:16 Albuterol HFA [Ventolin HFA 90 mcg/actuation (8 g)] 2 puff IH Q6 PRN 06/17/17 Amylase/Lipase/Protease [Viokase [id number] [id number] [id number] U] 1 tab PO DAILY Folic Acid/Mv,Iron,Min [Ra One Daily Maximum Tablet] 1 mg PO DAILY 06/17/17 Risperidone [Risperdal] 1 mg PO BID 06/17/17 Sertraline [Zoloft] 50 mg PO DAILY 06/17/17 Mental Status Examination - Personal Presentation Personal Presentation: Looks older than stated age - Affect Affect: Constricted, Depressed - Motor Activity Motor Activity: Psychomotor Retardation - Reliability in Providing Information Reliability in Providing Information: Poor, due to alteration in thoughts, Poor , due to altered mood - Speech Speech: Relevant - Mood Mood: Depressed, Anxious - Formal Thought Process Formal Thought Process: Hallucinations Additional comments: non command auditory hallucinations putting him down - Hallucinations/Delusions Hallucinations: Auditory - Obsessions/Compulsions Obsessions: No Compulsions: No - Cognitive Functions Orientation: Person, Place Sensorium: Alert Attention/Concentration: Attentive Abstract Thinking: [place] Judgement: Imparied, as evidence by: Poor judgement, Imparied, as evidence by: Lack of insight into illness - Risk Risk: Suicidal, Diminished functioning - Strength & Assets Inventory Strength & Assets Inventory: Family support - Limitations Additional comments: unemployed DSM 5 DX - DSM 5 DSM 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
[2017-06-19] MEDS: Multivitamin With Minerals Tab PO SCH (10:03)
[2017-06-19] MEDS: Amylase/Lipase/Protease 5,000 Units ECC PO SCH (10:03)
--- NOTE | 2017-06-19 15:30 | PCM.PYCHPN ---
Psychiatric Progress Note - Psychiatric Progress Note Patient seen today, length of contact: pt evaluated discussed with team chart reviewed Patient Chief Complaint: I need help with my substance use Problems Identified/Issues Discussed: pt evaluated with treatment team continues to report feeling depressed and anhedonic, with low energy, discussed with pt increasing the dose of effexor, motivational therapy provided and discussed with pt effect of cocaine and cannabis use on current mental status pt reported diminishing of the auditory hallucinations with risperidone, discussed referral to inpatient rehab on discharge denied any current suicidal or homicidal ideations, denied command hallucinations , no reported side effects of medications Medical Problems: multiple inpatient hospitalizations, partial compliance DSM 5 Symptoms Update: 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 hx of schizoaffective disorder Medication Change: Yes (increase effexor) Medical Record Reviewed: Yes Mental Status Examination - Cognitive Function Orientation: Person, Place Memory: Intact Attention: WNL Concentration: WNL Association: WNL Fund of Knowledge: Poor Decription of patient's judgement and insights: poor insight and judgment - Mood Mood: Depressed, Anxious - Affect Affect: Constricted, Depressed - Speech Speech: Appropriate - Formal Thought Process Formal Thought Process: Hallucinations, Circumstantial Psychotic Thoughts and Behaviors: pt reported non command auditory hallucinations - Suicidal Ideation Suicidal Ideation: No - Homicidal Ideation Homicidal Ideation: No Goal/Treatment Plan - Goal/Treatment Plan Need for Continued Stay: Severe depression anxiety, Discharge may exacerbated symptoms Progress Toward Problem(s) and Goals/Treatment Plan: risperdal 1mg bid increase 75 mg daily motivational group and supportive therapy
--- NOTE | 2017-06-20 08:43 | PCM.PYCHPN ---
Psychiatric Progress Note - Psychiatric Progress Note Patient seen today, length of contact: pt evaluated discussed with team chart reviewed Patient Chief Complaint: pt has h/o schizoaffective disorder and cocaine abuse and admitted for psychotic depression and reports decrease in voices with risperdal and still feeling depressed. Medication Change: Yes (increase effexor) Medical Record Reviewed: Yes Mental Status Examination - Cognitive Function Orientation: Person, Place Memory: Intact Attention: WNL Concentration: WNL Association: WNL Fund of Knowledge: Poor - Mood Mood: Depressed, Anxious - Affect Affect: Constricted, Depressed - Speech Speech: Appropriate - Formal Thought Process Formal Thought Process: Hallucinations, Circumstantial - Suicidal Ideation Suicidal Ideation: No - Homicidal Ideation Homicidal Ideation: No Goal/Treatment Plan - Goal/Treatment Plan Need for Continued Stay: Severe depression anxiety, Discharge may exacerbated symptoms Progress Toward Problem(s) and Goals/Treatment Plan: will continue to titrate the dose of efexor and risperdal to stBilize the pt. Disposition as per dr stevenson
[2017-06-20] MEDS: Venlafaxine 75 mg ER Cap PO SCH (09:55)
[2017-06-20] MEDS: Multivitamin With Minerals Tab PO SCH (09:56)
[2017-06-20] MEDS: Amylase/Lipase/Protease 5,000 Units ECC PO SCH (09:56)
[2017-06-21] MEDS: Multivitamin With Minerals Tab PO SCH (08:26)
[2017-06-21] MEDS: Venlafaxine 75 mg ER Cap PO SCH (08:26)
[2017-06-21] MEDS: Amylase/Lipase/Protease 5,000 Units ECC PO SCH (08:32)
[2017-06-22] MEDS: Multivitamin With Minerals Tab PO SCH (08:18)
[2017-06-22] MEDS: Amylase/Lipase/Protease 5,000 Units ECC PO SCH (08:18)
[2017-06-22] MEDS: Venlafaxine 75 mg ER Cap PO SCH (08:18)
[2017-06-22 17:49] VITALS: RESP 18
--- NOTE | 2017-06-22 19:05 | PCM.PYCHPN ---
Psychiatric Progress Note - Psychiatric Progress Note Patient seen today, length of contact: pt evaluated discussed with team chart reviewed Patient Chief Complaint: I still hear voices but very faint Problems Identified/Issues Discussed: pt evaluated reported feeling less depressed , presenting with brighter affect , more interactive with staff and other patients, pt reported continues to have non command auditory hallucinations but faint and distant discussed with pt increasing dose of risperidone denied any current suicidal or homicidal ideations, denied command hallucinations , no reported side effects of medications Medical Problems: multiple inpatient hospitalizations, partial compliance DSM 5 Symptoms Update: schizoaffective disorder Medication Change: Yes (increase risperidone) Medical Record Reviewed: Yes Mental Status Examination - Cognitive Function Orientation: Person, Place Memory: Intact Attention: WNL Concentration: WNL Association: WNL Fund of Knowledge: Poor - Mood Mood: Depressed, Anxious - Affect Affect: Constricted, Depressed - Speech Speech: Appropriate - Formal Thought Process Formal Thought Process: Hallucinations, Circumstantial Psychotic Thoughts and Behaviors: pt reported non command auditory hallucinations - Suicidal Ideation Suicidal Ideation: No - Homicidal Ideation Homicidal Ideation: No Goal/Treatment Plan - Goal/Treatment Plan Need for Continued Stay: Severe depression anxiety, Discharge may exacerbated symptoms Progress Toward Problem(s) and Goals/Treatment Plan: increase risperdal 1mg daily and1.5 mg qhs increase 75 mg daily motivational group and supportive therapy Estimated Date of D/C: 06/26/17
[2017-06-23] MEDS: Multivitamin With Minerals Tab PO SCH (08:38)
[2017-06-23] MEDS: Amylase/Lipase/Protease 5,000 Units ECC PO SCH (08:39)
[2017-06-23] MEDS: Venlafaxine 75 mg ER Cap PO SCH (08:39)
--- NOTE | 2017-06-23 17:54 | PCM.PYCHPN ---
Psychiatric Progress Note - Psychiatric Progress Note Patient seen today, length of contact: pt evaluated discussed with team chart reviewed Patient Chief Complaint: I still hear voices but less Problems Identified/Issues Discussed: pt evaluated , cooperative reported feeling less depressed , presenting with brighter affect, more interactive with staff and other patients, pt reported continues to have non command auditory hallucinations but faint and distant discussed with pt increasing dose of risperidone, pt awaiting referral to inpatient rehab denied any current suicidal or homicidal ideations, denied command hallucinations , no reported side effects of medications Medical Problems: multiple inpatient hospitalizations, partial compliance DSM 5 Symptoms Update: schizoaffective disorder cocaine use disorder Medication Change: Yes (increase risperidone) Medical Record Reviewed: Yes Mental Status Examination - Cognitive Function Orientation: Person, Place Memory: Intact Attention: WNL Concentration: WNL Association: WNL Fund of Knowledge: Poor - Mood Mood: Depressed, Anxious - Affect Affect: Constricted, Depressed - Speech Speech: Appropriate - Formal Thought Process Formal Thought Process: Hallucinations, Circumstantial Psychotic Thoughts and Behaviors: pt reported non command auditory hallucinations - Suicidal Ideation Suicidal Ideation: No - Homicidal Ideation Homicidal Ideation: No Goal/Treatment Plan - Goal/Treatment Plan Need for Continued Stay: Severe depression anxiety, Discharge may exacerbated symptoms Progress Toward Problem(s) and Goals/Treatment Plan: increase risperdal 1mg daily and1.5 mg qhs effexor 75 mg daily motivational group and supportive therapy Estimated Date of D/C: 06/26/17
[2017-06-24] MEDS: Amylase/Lipase/Protease 5,000 Units ECC PO SCH (08:52)
[2017-06-24] MEDS: Venlafaxine 75 mg ER Cap PO SCH (08:52)
[2017-06-24] MEDS: Multivitamin With Minerals Tab PO SCH (08:52)
--- NOTE | 2017-06-24 15:22 | PCM.PYCHPN ---
Psychiatric Progress Note - Psychiatric Progress Note Patient seen today, length of contact: pt evaluated discussed with team chart reviewed Patient Chief Complaint: I am depressed because it is the anniversary of my leaving Problems Identified/Issues Discussed: pt evaluated , cooperative reported feeling depressed today because of the anniversary of his leaving, , pt reported that he is no longer experiencing suicidal ideations, reported motivated to start inpatient rehab on discharge denied any current suicidal or homicidal ideations, denied command hallucinations , no reported side effects of medications Medical Problems: multiple inpatient hospitalizations, partial compliance DSM 5 Symptoms Update: schizoaffective disorder cocaine use disorder Medication Change: No Medical Record Reviewed: Yes Mental Status Examination - Cognitive Function Orientation: Person, Place Memory: Intact Attention: WNL Concentration: WNL Association: WNL Fund of Knowledge: Poor - Mood Mood: Depressed, Anxious - Affect Affect: Constricted, Depressed - Speech Speech: Appropriate - Formal Thought Process Formal Thought Process: Circumstantial Psychotic Thoughts and Behaviors: pt reported complete clearing off of the auditory halluciantions - Suicidal Ideation Suicidal Ideation: No - Homicidal Ideation Homicidal Ideation: No Goal/Treatment Plan - Goal/Treatment Plan Need for Continued Stay: Severe depression anxiety, Discharge may exacerbated symptoms Progress Toward Problem(s) and Goals/Treatment Plan: risperdal 1mg daily and1.5 mg qhs effexor 75 mg daily motivational group and supportive therapy Estimated Date of D/C: 06/26/17
[2017-06-25] MEDS: Venlafaxine 75 mg ER Cap PO SCH (08:46)
[2017-06-25] MEDS: Amylase/Lipase/Protease 5,000 Units ECC PO SCH (08:47)
[2017-06-25] MEDS: Multivitamin With Minerals Tab PO SCH (08:47)
[2017-06-25 10:10] VITALS: BP 105/85; PULSE 96; TEMP 97.9
--- NOTE | 2017-06-25 12:54 | PCM.PYCHDC ---
Mental Status Examination - Mental Status Examination Orientation: Person, Place, Situation Memory: Intact Mood: Neutral Affect: Broad Speech: Appropriate Attention: WNL Concentration: WNL Association: WNL Fund of Knowledge: WNL Formal Thought Process: No Impairment Description of patient's judgement and insight: partial insight and fair judgment Psychotic Thoughts and Behaviors: pt denied any current perceptual disturbances, non elicited Suicidal Ideation: No Current Homicidal Ideation?: No Discharge Summary - Discharge Note Reason for Hospitalization: pt requested help pt is 41ys old male , previous diagnosis of schizoaffective disorder, cocaine use and cannabis use, pt on day of evaluation had an appointment with psychiatrist, reported to her that he has been severely depressed and experiencing auditory hallucinations, telling him to hurt himself and cut his wrist, pt was sent to ER for evaluation on the unit pt reported severe depression for past four years as his ex left him with his two children to a different state and he is unable to see the children, pt also unemployed with financial difficulties, pt reported low energy , anhedonia, increased sleep reported passive suicidal ideations, no current plan, continues to experience non command auditory hallucinations, pt has been using cocaine and cannabis Consultations:: List each consultation separately and include: 1. Reason for request. 2. Findings. 3. Follow-up Summary of Hospital Course include:: 1. Description of specific treatment plan utilized for patients during their course of treatmen. 2. Summarize the time- course for resolution of acute symptoms and/or regressed behaviors. 3. Describe issues identified and worked on during hospitalization. 4. Describe medication utilized. 5. Describe medical problems identified and treated. 6. Reassessment of suicide risk Summary of Hospital Course: pt on admission presented with depressed mood and auditory hallucinations, pt was started on effexor, which was uptitrated to 75mg daily pt was also started on risperidone which was uptitrated to 2.5mg daily motivational therapy was provided in reference to cocaine and cannabis use and their effect on current mental status pt was referred by social media sr strategy manager to inpatient rehab at [facility] on discharge pt mental status was stable, denied any current suicidal or homicidal ideations denied perceptual disturbances and no reported side effects of medications - Diagnosis (1) Depression Status: Ruled-out - Final Diagnosis (DSM 5) Condition upon Discharge: STABLE DSM 5: schizoaffective disorder cocaine use disorder cannabis use disorder Disposition: HOME/ ROUTINE Follow-up Treatment Plan: risperdal 1mg daily and1.5 mg qhs effexor 75 mg daily motivational group and supportive therapy Prescriptions/Medication Reconciliation: risperiDONE [RisperDAL Tab] 1.5 mg PO HS 30 Days #90 tab risperiDONE [RisperDAL Tab] 1 mg PO DAILY 30 Days #30 tab traZODone [Desyrel] 100 mg PO HS 30 Days #30 tab Venlafaxine [Effexor XR] 75 mg PO DAILY 30 Days #30 cer - Antipsychotic Medications Pt discharged on 2 or more routine antipsychotic medications: No
== END 2017-06-25 11:54 | disposition home or self-care (01) | DRG 430 ==
LOC: H.ER 16:13 → H.ERHOLD 22:24 → H.PSYCH 06-18 00:40
PROVIDERS: ADMIT Psychiatry & Neurology Psychiatry; ATTEND Psychiatry & Neurology Psychiatry
PROC: GZ3ZZZZ Medication Management (ICD-10-PCS; principal; 2017-06-17)
PROC: GZHZZZZ Group Psychotherapy (ICD-10-PCS; 2017-06-17)
PROC: GZ56ZZZ Individual Psychotherapy, Supportive (ICD-10-PCS; 2017-06-17)
DX: F25.8 Other schizoaffective disorders (principal); F14.90 Cocaine use, unspecified, uncomplicated; R45.851 Suicidal ideations; J45.909 Unspecified asthma, uncomplicated; F41.8 Other specified anxiety disorders; M06.9 Rheumatoid arthritis, unspecified; M19.90 Unspecified osteoarthritis, unspecified site; Z90.49 Acquired absence of other specified parts of digestive tract; K86.1 Other chronic pancreatitis; F12.959 Cannabis use, unspecified with psychotic disorder, unspecified; Z87.891 Personal history of nicotine dependence